=== PATIENT | male | born 1960 | race Caucasian/White ===

== ENCOUNTER → 2016-07-31 | Outpatient (CLI) | payer BC ==
--- NOTE | 2016-07-31 11:40 | CT ---
EXAMINATION TYPE: CT chest w con DATE OF EXAM: 07/31/2016 10:27 AM COMPARISON: NONE HISTORY: Left lower chest pain CT DLP: 462.6 mGycm, Automated exposure control for dose reduction was used. CONTRAST: Performed injected with 100 mL of Omnipaque 300. TECHNIQUE: Axial images were obtained at 5 mm thick sections. Reconstructed images are reviewed on Sgn[employer] computer in the coronal plane. FINDINGS: Portion of the thyroid visualized is normal. No suspicious lung nodules or focal infiltrates are present. No enlarged mediastinal or hilar adenopathy is evident. The ascending aorta diameter at the level o f the main pulmonary artery is 3.6 cm. The main pulmonary artery diameter at the bifurcation is 2.0 cm. Some coronary artery calcification is noted. Limited CT sections are obtained through the upper abdomen. Abdomen is essentially unremarkable. Ther e is a moderate size hiatal hernia present. IMPRESSIONS: 1. No acute pulmonary process. 2. Hiatal hernia
== END | disposition home or self-care (01) ==
LOC: RADCTMAIN 09:38
PROVIDERS: ATTEND Physician Assistant
DX: R09.89 Other specified symptoms and signs involving the circulatory and respiratory systems (principal)
CPT/HCPCS: 71260; Q9967

== ENCOUNTER 2017-01-05 01:07 | Emergency (ER) | payer BC ==
[2017-01-05] MEDS ORDERED: ACETAMINOPHEN TAB 500 MG TAB PO STA (01:58)
[2017-01-05] MEDS ORDERED: SODIUM CHLORIDE 0.9% 1,000 ML IV ONE (01:58)
--- NOTE | 2017-01-05 02:17 | ED ---
Skin/Abscess/FB HPI - General Chief complaint: Skin/Abscess/Foreign Body Stated complaint: bug bite,fever Time Seen by Provider: 01/05/17 01:20 Source: patient, RN notes reviewed Mode of arrival: ambulatory Limitations: no limitations - History of Present Illness Initial comments: patient is a 56-year-old male presents emergency room for evaluation of left proximal forearm swelling and pain. Patient states he noticed a bug bite like lesion over his left forearm yesterday. Patient states it has increasingly gotten more swollen throughout the night. Patient states that he woke up about an hour ago with chills. Patient states he thought his arm should be evaluated. Patient denies nausea and vomiting. Patient denies headache or dizziness. Patient denies chest pain or shortness of breath. Patient states he still has full flexion and extension of his elbow. Patient denies any specific injury to his arm. Patient states he is not sure if he was bitten by an insect or spider. - Related Data Home Medications Medication Instructions Recorded Confirmed Enalapril (Unknown Dose) 1 tab PO BID 02/21/15 02/21/15 Tenex (Unknown Dose) 1 tab PO DAILY 02/21/15 02/21/15 Previous Rx's Medication Instructions Recorded HYDROcodone/APAP 5-325MG [[place] 1 each PO Q6HR PRN #20 tab 02/21/15 5-325] Ibuprofen [Motrin] 800 mg PO Q8HR PRN #30 tab 02/21/15 Ibuprofen [Motrin] 600 mg PO Q6HR PRN #20 tab 01/05/17 Sulfamethox-Tmp 800-160Mg [Bactrim 2 each PO Q12HR #56 tab 01/05/17 Ds] Allergies Allergy/AdvReac Type Severity Reaction Status Date / Time Tetracyclines Allergy Nausea & Verified 01/05/17 01:17 Vomiting Review of Systems ROS Statement: Those systems with pertinent positive or pertinent negative responses have been documented in the HPI. ROS Other: All systems not noted in ROS Statement are negative. Past Medical History Past Medical History: Hypertension History of Any Multi-Drug Resistant Organisms: None Reported Past Surgical History: Orthopedic Surgery Additional Past Surgical History / Comment(s): Right achilles tendon repair Past Psychological History: No Psychological Hx Reported Smoking Status: Never smoker Past Alcohol Use History: Occasional Past Drug Use History: None Reported General Exam - General Exam Comments Initial Comments: sitting in exam room, no acute distress. Limitations: no limitations General appearance: alert, in no apparent distress Head exam: Present: atraumatic, normocephalic, normal inspection Eye exam: Present: normal appearance ENT exam: Present: normal exam Neck exam: Present: normal inspection Respiratory exam: Present: normal lung sounds bilaterally. Absent: respiratory distress Cardiovascular Exam: Present: regular rate, normal rhythm, normal heart sounds Left Upper Arm exam: Present: normal inspection, full ROM. Absent: tenderness Elbow exam: Present: normal inspection, full ROM. Absent: tenderness Forearm Wrist exam: Present: tenderness, swelling (Tenderness and edema over the proximal forearm. No erythema or surrounding erythema. No streaking noted. No fluctuance.) Neuro motor exam: Present: wrist extension intact, thumb opposition intact, thumb IP flexion intact, thumb adduction intact, fingers 2-5 abduction intact Vascular: Present: normal capillary refill (capillary refill less than 2 seconds ), radial pulse (2+), ulnar pulse (2+) Back exam: Present: normal inspection Neurological exam: Present: alert, oriented X3, CN II-XII intact, normal gait Psychiatric exam: Present: normal affect, normal mood Skin exam: Present: warm, dry, intact, normal color. Absent: rash Course Vital Signs 01/05/17 01/05/17 01/05/17 01:14 01:48 02:53 Temperature 99.4 F 101.2 F H 99.8 F H Pulse Rate 90 60 Respiratory 20 18 Rate Blood Pressure 146/81 119/69 O2 Sat by Pulse 98 98 Oximetry 01/05/17 03:23 Temperature 99.8 F H Pulse Rate 60 Respiratory 18 Rate Blood Pressure 119/69 O2 Sat by Pulse 98 Oximetry Medical Decision Making - Medical Decision Making patient is a 56-year-old male presents to the emergency room for evaluation of swelling over her left forearm. There is no swelling or tenderness over the elbow joint. Labs within normal limits. The area does not appear to need to be drained at this time. Advised patient to apply warm compresses. Patient will be placed on antibiotics. Advised patient to return for any increased swelling, increased redness, streaking or decrease in range of motion of elbow. Patient states he understands everything that was discussed with him. Case discussed Dr. Pelletier. - Lab Data Result diagrams: 01/05/17 02:14 01/05/17 02:14 Lab Results 01/05/17 01/05/17 01/05/17 Range/Units 02:14 02:14 02:14 WBC 9.0 (3.8-10.6) k/uL RBC 4.97 (4.30-5.90) m/uL Hgb 15.2 (13.0-17.5) gm/dL Hct 43.9 (39.0-53.0) % MCV 88.2 (80.0-100.0) fL MCH 30.6 (25.0-35.0) pg MCHC 34.7 (31.0-37.0) g/dL RDW 12.7 (11.5-15.5) % Plt Count 171 (150-450) k/uL Neutrophils % 78 % Lymphocytes % 13 % Monocytes % 6 % Eosinophils % 3 % Basophils % 0 % Neutrophils # 7.0 (1.3-7.7) k/uL Lymphocytes # 1.1 (1.0-4.8) k/uL Monocytes # 0.5 (0-1.0) k/uL Eosinophils # 0.2 (0-0.7) k/uL Basophils # 0.0 (0-0.2) k/uL Sodium 138 (137-145) mmol/L Potassium 3.9 (3.5-5.1) mmol/L Chloride 104 (98-107) mmol/L Carbon Dioxide 23 (22-30) mmol/L Anion Gap 11 mmol/L BUN 31 H (9-20) mg/dL Creatinine 1.00 (0.66-1.25) mg/dL Est GFR (MDRD) Af Amer >60 (>60 ml/min/1.73 sqM) Est GFR (MDRD) Non-Af >60 (>60 ml/min/1.73 sqM) Glucose 110 H (74-99) mg/dL Plasma Lactic Acid Malik 1.1 (0.7-2.0) mmol/L Calcium 9.2 (8.4-10.2) mg/dL Total Bilirubin 1.2 (0.2-1.3) mg/dL AST 32 (17-59) U/L ALT 52 (21-72) U/L Alkaline Phosphatase 62 (38-126) U/L Total Protein 6.7 (6.3-8.2) g/dL Albumin 4.3 (3.5-5.0) g/dL - Radiology Data Radiology results: report reviewed, image reviewed Disposition Clinical Impression: Left arm cellulitis Disposition: HOME SELF-CARE Condition: Good Instructions: Cellulitis (ED) Additional Instructions: Apply warm compresses. Take antibiotics as directed. Tylenol or Motrin as needed for discomfort. Please follow-up with primary care provider in 24-48 hours for reevaluation. If any new symptom arises or symptoms worsen, return to ER as soon as possible. Prescriptions: Ibuprofen [Motrin] 600 mg PO Q6HR PRN #20 tab PRN Reason: Pain Sulfamethox-Tmp 800-160Mg [Bactrim Ds] 2 each PO Q12HR #56 tab Referrals: Sanya Chamberlain DO [Primary Care Provider] - 1-2 days Time of Disposition: 03:07
[2017-01-05 02:21] LABS: Basophils % (A) 0 %; CH 31.6; Eosinophils # (A) 0.2 k/uL (0-0.7); Eosinophils % (A) 3 %; HCT 43.9 % (39.0-53.0); HDW 2.62; HGB 15.2 gm/dL (13.0-17.5); Luc # (Auto) 0.12; Luc % (Auto) 1; Lymphocytes # (A) 1.1 k/uL (1.0-4.8); Lymphocytes % (A) 13 %; MCH 30.6 pg (25.0-35.0); MCHC 34.7 g/dL (31.0-37.0); MCV 88.2 fL (80.0-100.0); Mean Platelet Volume 8.9; Monocytes # (A) 0.5 k/uL (0-1.0); Monocytes % (A) 6 %; Neutrophils % (A) 78 %; RBC 4.97 m/uL (4.30-5.90); RDW 12.7 % (11.5-15.5); WBC (Perox) 9.26
[2017-01-05 02:34] LABS: ALT 52 U/L (21-72); AST 32 U/L (17-59); Alkaline Phosphatase 62 U/L (38-126); Anion Gap 11 mmol/L; Blood Urea Nitrogen 31 mg/dL (9-20); Calcium 9.2 mg/dL (8.4-10.2); Carbon Dioxide 23 mmol/L (22-30); Chloride 104 mmol/L (98-107); Glucose 110 mg/dL (74-99); Non-African American GFR(MDRD) >60 (>60 ml/min/1.73 sqM); Potassium 3.9 mmol/L (3.5-5.1); Sodium 138 mmol/L (137-145); Total Bilirubin 1.2 mg/dL (0.2-1.3); Total Protein 6.7 g/dL (6.3-8.2)
--- NOTE | 2017-01-05 02:49 | XR ---
LEFT ELBOW 2 views INDICATION: Left elbow pain COMPARISON: None FINDINGS: AP and lateral views of the left elbow are obtained. No elbow joint effusion. No malalignment or dislocation. No evidence of acute fracture. Mild osteoarthritic changes of the ulnohumeral articulation. Enthesopathy along the lateral humeral epicondyle and lateral radial head. Soft tissues are unremarkable. IMPRESSION: No acute fracture or subluxation identified.
[2017-01-05 02:54] VITALS: BP 119/69; PULSE 60; RESP 18; TEMP 99.8
[2017-01-05] MEDS ORDERED: SULFAMETHOX-TMP 800-160MG 1 EACH TAB PO STA (03:06)
== END 2017-01-05 03:23 | disposition home or self-care (01) ==
LOC: EC 01:07
DX: L03.114 Cellulitis of left upper limb (principal); I10 Essential (primary) hypertension; Z79.899 Other long term (current) drug therapy; Z88.1 Allergy status to other antibiotic agents
CPT/HCPCS: 36415; 80053; 83605; 85025; 96360; 99283

== ENCOUNTER 2017-10-02 16:03 | Observation (INO) | payer BC ==
--- NOTE | 2017-10-02 16:28 | ED ---
General Adult HPI - General Chief complaint: Syncope Stated complaint: near syncope Time Seen by Provider: 10/02/17 16:06 Source: patient, RN notes reviewed Mode of arrival: EMS Limitations: no limitations - History of Present Illness Initial comments: 57 yo male presenting for evaluation of right-sided chest pain. 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 Pain was so severe patient did become pale diaphoretic and nearly passed out. At the time of my evaluation pain is resolved. He has only minimal tenderness with palpation in the right upper chest. No dyspnea. No nausea vomiting. He did have nausea associated with his pain. Patient has past medical history of hypertension. Patient did eat a normal breakfast, he has had no lunch which is not abnormal for him. - Related Data Home Medications Medication Instructions Recorded Confirmed LORazepam [Ativan] 0.5 mg PO HS 10/02/17 10/02/17 Valsartan/Hydrochlorothiazide 1 tab PO HS 10/02/17 10/02/17 [Valsartan-Hctz 320-25 mg Tab] guanFACINE HCL [Tenex] 2 mg PO BID 10/02/17 10/02/17 Allergies Allergy/AdvReac Type Severity Reaction Status Date / Time sulfamethoxazole Allergy Nausea & Verified 10/02/17 17:11 [From Bactrim] Vomiting Tetracyclines Allergy Nausea & Verified 10/02/17 17:11 Vomiting trimethoprim [From Bactrim] Allergy Nausea & Verified 10/02/17 17:11 Vomiting Review of Systems ROS Statement: Those systems with pertinent positive or pertinent negative responses have been documented in the HPI. ROS Other: All systems not noted in ROS Statement are negative. Past Medical History Past Medical History: Hypertension Additional Past Medical History / Comment(s): hypoglycemia History of Any Multi-Drug Resistant Organisms: None Reported Past Surgical History: Orthopedic Surgery Additional Past Surgical History / Comment(s): Right achilles tendon repair Past Psychological History: No Psychological Hx Reported Smoking Status: Never smoker Past Alcohol Use History: Occasional Past Drug Use History: None Reported General Exam Limitations: no limitations General appearance: alert, in no apparent distress Head exam: Present: atraumatic, normocephalic Eye exam: Present: normal appearance, PERRL ENT exam: Present: normal exam Neck exam: Present: normal inspection. Absent: tenderness, meningismus Respiratory exam: Present: normal lung sounds bilaterally. Absent: respiratory distress, wheezes, rales Cardiovascular Exam: Present: regular rate, normal rhythm GI/Abdominal exam: Present: soft. Absent: distended, tenderness Extremities exam: Present: normal inspection, normal capillary refill, other ( Bilateral radial pulses 2+). Absent: pedal edema Neurological exam: Present: alert, oriented X3, CN II-XII intact. Absent: motor sensory deficit Psychiatric exam: Present: normal affect, normal mood Skin exam: Present: warm, dry, intact. Absent: cyanosis, diaphoretic Course Vital Signs 10/02/17 10/02/17 10/02/17 16:10 16:47 17:45 Temperature 98.9 F Pulse Rate 73 71 Pulse Rate [ 73 Sitting] Pulse Rate [ 77 Standing] Pulse Rate [ 70 Supine] Respiratory 20 16 20 Rate Blood Pressure 135/80 141/65 Blood Pressure 159/77 [Sitting] Blood Pressure 145/92 [Standing] Blood Pressure 138/74 [Supine] O2 Sat by Pulse 98 98 Oximetry - Reevaluation(s) Reevaluation #1: 10/02/17 18:40 Patient remains chest pain-free on reevaluation. He's had no chest pain since arrival. Further history was obtained at the patient's son did pass away at age 28 of an aortic dissection. This history was obtained after CT of the thorax was obtained. CT of the thorax for pulmonary embolism was negative for dissection, normal thoracic aortic caliber. However this was not timed as an aorta study and radiology cannot fully comment on the aorta from this CAT scan. Patient's pulses are normal, blood pressure is stable. However given this history CT angiography of the aorta will be obtained in the morning. This is discussed with [facility] who will accept admission and follow-up on the CT. EKG Findings - EKG Comments: EKG Findings:: EKG, normal sinus rhythm ventricular rate of 71, DC interval 158 , QRS duration 84, QTC 452 no definitive signs of ischemia. Medical Decision Making - Medical Decision Making 57 yo male presenting with right-sided chest pain which is resolved. Patient also had near syncopal episode with patellar and diaphoresis by history. Patient is well-appearing on arrival, normal vital signs. Pain resolved. EKG shows no definitive signs of ischemia. CBC CMP within normal limits. Troponin is negative. CT angiography was obtained which is negative for PE, there is hiatal hernia. This study was performed prior to learning that the patient's son of a thoracic aortic aneurysm approximately 2 years ago. This was secondary to a congenital defect according to the patient's . Although patient's pain is atypical for cardiac chest pain, serial cardiac enzymes will be obtained and cardiology will be placed on consult. CT of the aorta will be obtained in the morning after IV hydration. Diagnosis: Chest pain, near syncope - Lab Data Result diagrams: 10/02/17 16:40 10/02/17 16:40 Lab Results 10/02/17 10/02/17 10/02/17 Range/Units 16:40 16:40 16:40 WBC 7.3 (3.8-10.6) k/uL RBC 4.96 (4.30-5.90) m/uL Hgb 15.1 (13.0-17.5) gm/dL Hct 42.2 (39.0-53.0) % MCV 84.9 (80.0-100.0) fL MCH 30.5 (25.0-35.0) pg MCHC 35.9 (31.0-37.0) g/dL RDW 12.8 (11.5-15.5) % Plt Count 187 (150-450) k/uL Neutrophils % 74 % Lymphocytes % 18 % Monocytes % 5 % Eosinophils % 1 % Basophils % 0 % Neutrophils # 5.4 (1.3-7.7) k/uL Lymphocytes # 1.3 (1.0-4.8) k/uL Monocytes # 0.4 (0-1.0) k/uL Eosinophils # 0.1 (0-0.7) k/uL Basophils # 0.0 (0-0.2) k/uL PT (9.0-12.0) sec INR (<1.2) APTT (22.0-30.0) sec D-Dimer (<0.60) mg/L FEU Sodium 142 (137-145) mmol/L Potassium 4.0 (3.5-5.1) mmol/L Chloride 104 (98-107) mmol/L Carbon Dioxide 22 (22-30) mmol/L Anion Gap 16 mmol/L BUN 25 H (9-20) mg/dL Creatinine 1.00 (0.66-1.25) mg/dL Est GFR (CKD-EPI)AfAm >90 (>60 ml/min/1.73 sqM) Est GFR (CKD-EPI)NonAf 84 (>60 ml/min/1.73 sqM) Glucose 99 (74-99) mg/dL Calcium 9.3 (8.4-10.2) mg/dL Magnesium 2.0 (1.6-2.3) mg/dL Total Bilirubin 0.5 (0.2-1.3) mg/dL AST 35 (17-59) U/L ALT 56 (21-72) U/L Alkaline Phosphatase 74 (38-126) U/L Total Creatine Kinase 255 H (55-170) U/L CK-MB (CK-2) 3.0 H* (0.0-2.4) ng/mL CK-MB (CK-2) Rel Index 1.2 Troponin I <0.012 (0.000-0.034) ng/mL NT-Pro-B Natriuret Pep pg/mL Total Protein 7.0 (6.3-8.2) g/dL Albumin 4.5 (3.5-5.0) g/dL Amylase 64 (30-110) U/L Lipase 84 (23-300) U/L 10/02/17 10/02/17 Range/Units 16:40 16:40 WBC (3.8-10.6) k/uL RBC (4.30-5.90) m/uL Hgb (13.0-17.5) gm/dL Hct (39.0-53.0) % MCV (80.0-100.0) fL MCH (25.0-35.0) pg MCHC (31.0-37.0) g/dL RDW (11.5-15.5) % Plt Count (150-450) k/uL Neutrophils % % Lymphocytes % % Monocytes % % Eosinophils % % Basophils % % Neutrophils # (1.3-7.7) k/uL Lymphocytes # (1.0-4.8) k/uL Monocytes # (0-1.0) k/uL Eosinophils # (0-0.7) k/uL Basophils # (0-0.2) k/uL PT 10.4 (9.0-12.0) sec INR 1.1 (<1.2) APTT 18.6 L (22.0-30.0) sec D-Dimer <0.17 (<0.60) mg/L FEU Sodium (137-145) mmol/L Potassium (3.5-5.1) mmol/L Chloride (98-107) mmol/L Carbon Dioxide (22-30) mmol/L Anion Gap mmol/L BUN (9-20) mg/dL Creatinine (0.66-1.25) mg/dL Est GFR (CKD-EPI)AfAm (>60 ml/min/1.73 sqM) Est GFR (CKD-EPI)NonAf (>60 ml/min/1.73 sqM) Glucose (74-99) mg/dL Calcium (8.4-10.2) mg/dL Magnesium (1.6-2.3) mg/dL Total Bilirubin (0.2-1.3) mg/dL AST (17-59) U/L ALT (21-72) U/L Alkaline Phosphatase (38-126) U/L Total Creatine Kinase (55-170) U/L CK-MB (CK-2) (0.0-2.4) ng/mL CK-MB (CK-2) Rel Index Troponin I (0.000-0.034) ng/mL NT-Pro-B Natriuret Pep 40 pg/mL Total Protein (6.3-8.2) g/dL Albumin (3.5-5.0) g/dL Amylase (30-110) U/L Lipase (23-300) U/L Disposition Clinical Impression: Syncope, Chest pain Disposition: ADMITTED IP TO THIS [facility] Condition: Stable Is patient prescribed a controlled substance at d/c from ED?: No Referrals: Sanya Chamberlain DO [Primary Care Provider] - 1-2 days Decision to Admit Reason: Admit from EC Decision Date: 10/02/17 Decision Time: 18:45
[2017-10-02 16:56] LABS: Basophils % (A) 0 %; Eosinophils # (A) 0.1 k/uL (0-0.7); Eosinophils % (A) 1 %; HCT 42.2 % (39.0-53.0); HGB 15.1 gm/dL (13.0-17.5); Lymphocytes # (A) 1.3 k/uL (1.0-4.8); Lymphocytes % (A) 18 %; MCH 30.5 pg (25.0-35.0); MCHC 35.9 g/dL (31.0-37.0); MCV 84.9 fL (80.0-100.0); Mean Platelet Volume 9.1; Monocytes # (A) 0.4 k/uL (0-1.0); Monocytes % (A) 5 %; Neutrophils # (A) 5.4 k/uL (1.3-7.7); Neutrophils % (A) 74 %; Platelet Count 187 k/uL (150-450); RBC 4.96 m/uL (4.30-5.90); RDW 12.8 % (11.5-15.5); WBC 7.3 k/uL (3.8-10.6)
[2017-10-02 17:11] LABS: Creatine Kinase 255 U/L (55-170)
--- NOTE | 2017-10-02 17:11 | XR ---
EXAMINATION TYPE: XR chest 2V DATE OF EXAM: 10/02/2017 COMPARISON: NONE HISTORY: Shortness of breath TECHNIQUE: Frontal and lateral views of the chest are obtained. FINDINGS: Scattered senescent parenchymal changes noted. Hyperinflation compatible with COPD. No evidence for infiltrate. No evidence for atelectasis. Heart size is stable. Mediastinal structures are stable and grossly unremarkable. Fixed hiatal hernia noted. No evidence for hilar prominence. Degenerative changes dorsal spine. IMPRESSION: 1. No evidence for acute pulmonary disease.
[2017-10-02 17:14] LABS: ALT 56 U/L (21-72); AST 35 U/L (17-59); Albumin 4.5 g/dL (3.5-5.0); Alkaline Phosphatase 74 U/L (38-126); Amylase 64 U/L (30-110); Anion Gap 16 mmol/L; Blood Urea Nitrogen 25 mg/dL (9-20); Calcium 9.3 mg/dL (8.4-10.2); Carbon Dioxide 22 mmol/L (22-30); Chloride 104 mmol/L (98-107); Glucose 99 mg/dL (74-99); Lipase 84 U/L (23-300); Sodium 142 mmol/L (137-145); Total Bilirubin 0.5 mg/dL (0.2-1.3)
[2017-10-02 17:19] LABS: D-Dimer <0.17 mg/L FEU (<0.60); INR 1.1 (<1.2); Prothrombin Time 10.4 sec (9.0-12.0)
[2017-10-02 17:21] LABS: Partial Thromboplastin Time 18.6 sec (22.0-30.0)
[2017-10-02 17:24] LABS: Troponin I <0.012 ng/mL (0.000-0.034)
[2017-10-02] MEDS ORDERED: RX INFO: IV CONTRAST WAS GIVEN 1 EACH MISC MISCELLANE PRN ×2 (17:36→18:45)
--- NOTE | 2017-10-02 18:21 | CT ---
EXAMINATION TYPE: CT angio chest DATE OF EXAM: 10/02/2017 COMPARISON: 07/31/2016 HISTORY: Patient complains of right side chest pain and near syncope. CT DLP: 493 mGycm CONTRAST: CT chest with contrast and 3D reconstruction with MIP imaging is performed with IV Contrast, patient injected with 100 mL of Isovue 370. Contrast-enhanced CT of the chest was performed through the course of the pulmonary arteries with emil g and mediastinal window settings submitted. 3D reconstruction with MIP imaging was also performed. PULMONARY ARTERIES: The pulmonary arteries and their major tributaries are patent. I do not see enmanuel dence for sizable filling defect to suggest pulmonary embolic process. LUNGS: The lungs are clear and free of infiltrate. No evidence for atelectasis. No pulmonary nodule or mass is detected. No pleural effusion. MEDIASTINUM: Thoracic aorta is of normal caliber,however, evaluation is limited given timing of the contrast bolus. If there is concern for thoracic aortic pathology consider GABRIELLA. Correlate clinicall y . The heart is not enlarged. No evidence for mediastinal mass. No mediastinal lymph nodes greater than 1cm. Moderate fixed hiatal hernia. HILAR STRUCTURES: No evidence for mass. No hilar lymph nodes greater than 1 cm. UPPER ABDOMEN: No significant abnormality is seen. IMPRESSION: 1. No evidence for Pulmonary embolism at this time. 2. Moderate fixed hiatal hernia.
[2017-10-02] MEDS ORDERED: NALOXONE 0.4 MG/ML 1 ML VIAL IV PRN (18:46)
[2017-10-02] MEDS ORDERED: ACETAMINOPHEN TAB 325 MG TAB PO PRN (18:46)
[2017-10-02] MEDS ORDERED: HYDROcodone/APAP 5-325MG 1 EACH TAB PO PRN (22:29)
[2017-10-02] MEDS: LORazepam 0.5 MG TAB PO SCH (22:35)
[2017-10-02] MEDS: HYDROCHLOROTHIAZIDE 25 MG TAB PO SCH (23:01)
[2017-10-02] MEDS: VALSARTAN 160 MG TAB PO SCH (23:01)
[2017-10-02 23:22] LABS: Creatine Kinase 242 U/L (55-170)
[2017-10-02 23:36] LABS: Creatine Kinase MB 2.1 ng/mL (0.0-2.4); Troponin I <0.012 ng/mL (0.000-0.034)
[2017-10-03 05:24] LABS: Creatine Kinase 209 U/L (55-170)
[2017-10-03 05:37] LABS: Creatine Kinase MB 1.8 ng/mL (0.0-2.4); Troponin I <0.012 ng/mL (0.000-0.034)
[2017-10-03 10:29] LABS: Anion Gap 13 mmol/L; Blood Urea Nitrogen 21 mg/dL (9-20); Calcium 9.1 mg/dL (8.4-10.2); Carbon Dioxide 25 mmol/L (22-30); Chloride 101 mmol/L (98-107); Glucose 104 mg/dL (74-99); Sodium 139 mmol/L (137-145)
[2017-10-03] MEDS: guanFACINE 1 MG TAB PO SCH ×2 (10:43→21:56)
--- NOTE | 2017-10-03 11:39 | ECHOF ---
Referral Reason:cp MEASUREMENTS -------- HEIGHT: 167.6 cm WEIGHT: 97.1 kg BP: 137/79 RVIDd: 2.7 cm (< 3.3) IVSd: 1.2 cm (0.6 - 1.1) LVIDd: 4.5 cm (3.9 - 5.3) LVPWd: 1.2 cm (0.6 - 1.1) IVSs: 1.6 cm LVIDs: 3.1 cm LVPWs: 1.5 cm LA Diam: 2.7 cm (2.7 - 3.8) LAESV Index (A-L): 31.82 ml/m Ao Diam: 2.9 cm (2.0 - 3.7) AV Cusp: 2.0 cm (1.5 - 2.6) MV EXCURSION: 12.148 mm (> 18.000) MV EF SLOPE: 57 mm/s (70 - 150) EPSS: 0.2 cm MV E Tigre: 0.70 m/s MV DecT: 266 ms MV A Tigre: 0.88 m/s MV E/A Ratio: 0.79 AR PHT: 843 ms RAP: 5.00 mmHg RVSP: 26.09 mmHg FINDINGS -------- Sinus rhythm. This was a technically adequate study. The left ventricular size is normal. There is borderline concentric left ventricular hypertrophy. Overall left ventricular systolic function is normal with, an EF between 60 - 65 %. The right ventricle is normal in size. LA is midly dilated 29-33ml/m2. The right atrium is normal in size. There is mild aortic valve sclerosis. There is mild aortic regurgitation. Mild mitral annular calcification present. Mild tricuspid regurgitation present. Right ventricular systolic pressure is normal at < 35 mmHg. There is no pulmonic regurgitation present. The aortic root size is normal. Normal inferior vena cava with normal inspiratory collapse consistent with estimated right atrial pre ssure of 5 mmHg. There is no pericardial effusion. CONCLUSIONS -------- 1. Sinus rhythm. 2. This was a technically adequate study. 3. The left ventricular size is normal. 4. There is borderline concentric left ventricular hypertrophy. 5. Overall left ventricular systolic function is normal with, an EF between 60 - 65 %. 6. The right ventricle is normal in size. 7. LA is midly dilated 29-33ml/m2. 8. The right atrium is normal in size. 9. There is mild aortic valve sclerosis. 10. There is mild aortic regurgitation. 11. Mild mitral annular calcification present. 12. Mild tricuspid regurgitation present. 13. Right ventricular systolic pressure is normal at < 35 mmHg. 14. There is no pulmonic regurgitation present. 15. The aortic root size is normal. 16. Normal inferior vena cava with normal inspiratory collapse consistent with estimated right atrial pressure of 5 mmHg. 17. There is no pericardial effusion. COMPTOMETER OPERATOR: Asia Ramirez RDCS
--- NOTE | 2017-10-03 11:50 | P.CRDCN ---
History of Present Illness Consult date: 10/03/17 History of present illness: Mr. Chaves is a pleasant 57-year-old male past medical history significant for hypertension and depression. He denies history of coronary artery disease, diabetes mellitus or dyslipidemia. He does not see a replanting machine operator for any reason. We have been asked to see him in consultation for chest pain. He states he was at work yesterday when he became acutely dizzy. 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 Once he sat down he got an intensely sharp pain in the right anterior chest wall that radiated down the right arm and through to his back. Per his co-workers he was ashen in color and extremely disoriented and diaphoretic. The symptoms lasted for approximately 20 minutes and subsided on its own. He denies associated shortness of breath, palpitations, nausea or vomiting. He states he lost his son last year secondary to a thoracic aortic aneurysm. Initial CTA chest revealed no evidence of PE however thoracic aorta was not clearly visualized. Repeat CT is ordered for this evening at 1800. He's had no further symptoms of chest discomfort or dizziness since admission. EKG revels sinus mechanism with no acute ST or T-wave abnormalities. Telemetry tracings have been unremarkable. Chest xray is negative for an acute cardiopulmonary process. Laboratory data reviewed, hemoglobin 15.1, platelets 187, d-dimer less than 0.17 , sodium 139, potassium 4.0, magnesium 2.0, creatinine 0.2, cardiac enzymes negative 3. Current cardiac medications include valsartan/HCTZ 320/25 mg daily. He also takes Ativan and Tenex. Review of Systems At the time of my exam: CONSTITUTIONAL: Denies fever. Denies chills. EYES: Denies blurred vision. Denies vision changes. Denies eye pain. EARS, NOSE, MOUTH & THROAT: Denies headache. Denies sore throat. Denies ear pain. CARDIOVASCULAR: Denies chest pain. Denies shortness of breath. Denies orthopnea. Denies PND. Denies palpitations. RESPIRATORY: Denies cough. GASTROINTESTINAL: Denies abdominal pain. Denies diarrhea. Denies constipation. Denies nausea. Denies vomiting. MUSCULOSKELETAL: Denies myalgias. INTEGUMENTARY: Denies pruitis. Denies rash. NEUROLOGIC: Denies numbness. Denies tingling. Denies weakness. PSYCHIATRIC: Denies anxiety. Denies depression. ENDOCRINE: Denies fatigue. Denies weight change. Denies polydipsia. Denies polyurina. GENITOURINARY: Denies burning, hematuria or urgency with micturation. HEMATOLOGIC: Denies history of anemia. Denies bleeding. Past Medical History Past Medical History: Hypertension, Pneumonia Additional Past Medical History / Comment(s): hypoglycemia History of Any Multi-Drug Resistant Organisms: None Reported Past Surgical History: Orthopedic Surgery Additional Past Surgical History / Comment(s): Right achilles tendon repair Past Anesthesia/Blood Transfusion Reactions: No Reported Reaction Smoking Status: Never smoker - Past Family History Mother Additional Family Medical History / Comment(s): passed at 26 in MVA Father Additional Family Medical History / Comment(s): passed at 28 of MVA Sister(s) Family Medical History: No Reported History Brother(s) Family Medical History: No Reported History Son(s) Additional Family Medical History / Comment(s): at 28 from AAA rupture Daughter(s) Family Medical History: No Reported History Medications and Allergies Home Medications Medication Instructions Recorded Confirmed Type LORazepam [Ativan] 0.5 mg PO HS 10/02/17 10/02/17 History Valsartan/Hydrochlorothiazide 1 tab PO 10/02/17 10/02/17 History [Valsartan-Hctz 320-25 mg Tab] guanFACINE HCL [Tenex] 2 mg PO BID 10/02/17 10/02/17 History Allergies Allergy/AdvReac Type Severity Reaction Status Date / Time sulfamethoxazole Allergy Nausea & Verified 10/02/17 22:04 [From Bactrim] Vomiting Tetracyclines Allergy Nausea & Verified 10/02/17 22:04 Vomiting trimethoprim [From Bactrim] Allergy Nausea & Verified 10/02/17 22:04 Vomiting Physical Exam Vitals: Vital Signs Temp Pulse Pulse Pulse Pulse Pulse Resp 10/03/17 07:58 98.1 F 62 10/03/17 04:00 97.8 F 63 16 10/03/17 03:23 16 10/02/17 22:21 98.4 F 65 10/02/17 22:17 18 10/02/17 21:42 99.9 F H 73 10/02/17 17:45 71 20 10/02/17 16:47 73 77 70 16 10/02/17 16:10 98.9 F 73 20 BP BP BP BP BP Pulse Ox 10/03/17 07:58 137/79 99 10/03/17 04:00 119/69 95 10/03/17 03:23 10/02/17 22:21 143/72 96 10/02/17 22:17 10/02/17 21:42 107/66 96 10/02/17 17:45 141/65 98 10/02/17 16:47 159/77 145/92 138/74 10/02/17 16:10 135/80 98 Intake and Output 10/02/17 10/03/17 10/03/17 22:59 06:59 14:59 Other: Voiding Method Toilet Toilet Weight 97.069 kg Blood pressure 137/79 heart rate 62 afebrile maintaining oxygen saturation on room air. GENERAL: This is a 57-year-old male in no apparent distress at the time of my examination. HEENT: Head is atraumatic, normocephalic. Pupils are equal, round. Sclerae anicteric. Conjunctivae are clear. Mucous membranes of the mouth are moist. Neck is supple. There is no jugular venous distention. No carotid bruit is heard. LUNGS: Clear to auscultation no wheezes, rales or rhonchi. No chest wall tenderness is noted on palpation or with deep breathing. HEART: Regular rate and rhythm without murmurs, rubs or gallops. S1 and S2 heard. ABDOMEN: Soft, nontender. Bowel sounds are heard. No organomegaly noted. EXTREMITIES: No evidence of peripheral edema and no calf tenderness noted. VASCULAR: Radial and dorsalis pedis pulses palpated, no evidence of clubbing. NEUROLOGIC: Patient is awake, alert and oriented x3. Results 10/02/17 16:40 10/03/17 04:37 Cardiac Enzymes 10/02/17 10/02/17 10/02/17 Range/Units 16:40 16:40 22:51 AST 35 (17-59) U/L CK-MB (CK-2) 3.0 H* 2.1 (0.0-2.4) ng/mL Troponin I <0.012 <0.012 (0.000-0.034) ng/mL 10/03/17 Range/Units 04:37 AST (17-59) U/L CK-MB (CK-2) 1.8 (0.0-2.4) ng/mL Troponin I <0.012 (0.000-0.034) ng/mL Coagulation 10/02/17 Range/Units 16:40 PT 10.4 (9.0-12.0) sec APTT 18.6 L (22.0-30.0) sec CBC 10/02/17 Range/Units 16:40 WBC 7.3 (3.8-10.6) k/uL RBC 4.96 (4.30-5.90) m/uL Hgb 15.1 (13.0-17.5) gm/dL Hct 42.2 (39.0-53.0) % Plt Count 187 (150-450) k/uL Comprehensive Metabolic Panel 10/02/17 Range/Units 16:40 Sodium 142 (137-145) mmol/L Potassium 4.0 (3.5-5.1) mmol/L Chloride 104 (98-107) mmol/L Carbon Dioxide 22 (22-30) mmol/L BUN 25 H (9-20) mg/dL Creatinine 1.00 (0.66-1.25) mg/dL Glucose 99 (74-99) mg/dL Calcium 9.3 (8.4-10.2) mg/dL AST 35 (17-59) U/L ALT 56 (21-72) U/L Alkaline Phosphatase 74 (38-126) U/L Total Protein 7.0 (6.3-8.2) g/dL Albumin 4.5 (3.5-5.0) g/dL Current Medications Generic Name Dose Route Start Last Admin Trade Name Freq PRN Reason Stop Dose Admin Acetaminophen 650 mg 10/02/17 18:46 Tylenol Tab PO Q6HR PRN Mild Pain or Fever > 100.5 Hydrocodone Bitart/Acetaminophen 1 each 10/02/17 22:29 [place] 5-325 PO Q4HR PRN for moderate pain Hydrochlorothiazide 25 mg 10/02/17 21:00 10/02/17 23:01 Hydrodiuril PO 25 mg HS OCTAVIANO Administration Lorazepam 0.5 mg 10/02/17 21:00 10/02/17 22:35 Ativan PO 0.5 mg HS OCTAVIANO Administration Miscellaneous Information 1 each 10/02/17 17:36 Rx Info: Iv Contrast Was Given MISCELLANE 10/04/17 17:36 DAILY PRN Per Protocol Miscellaneous Information 1 each 10/02/17 18:45 Rx Info: Iv Contrast Was Given MISCELLANE 10/04/17 18:45 DAILY PRN Per Protocol Naloxone HCl 0.2 mg 10/02/17 18:46 Narcan IV Q2M PRN Opioid Reversal Valsartan 320 mg 10/02/17 21:00 10/02/17 23:01 Diovan PO 320 mg HS OCTAVIANO Administration Intake and Output 10/02/17 10/03/17 10/03/17 22:59 06:59 14:59 Other: Voiding Method Toilet Toilet Weight 97.069 kg 10/02/17 16:40 10/02/17 16:40 Assessment and Plan Assessment: ASSESSMENT 1. Right sided chest pain, an acute coronary event has been ruled out with negative cardiac enzymes and no EKG evidence of ischemia. 2. Hypertension PLAN An acute coronary event has been ruled out. Obtain 2D echocardiogram and doppler study to assess cardiac structure and function. Proceed with repeat CT, if this is normal we will pursue a stress test tomorrow morning. NPO after midnight. Thank you kindly for this consultation. Nurse Practitioner note has been reviewed, I agree with a documented findings and plan of care. Patient was seen and examined.
[2017-10-03] MEDS: VALSARTAN 160 MG TAB PO SCH (21:55)
[2017-10-03] MEDS: HYDROCHLOROTHIAZIDE 25 MG TAB PO SCH (21:55)
[2017-10-03] MEDS: LORazepam 0.5 MG TAB PO SCH (21:56)
--- NOTE | 2017-10-03 22:40 | CT ---
EXAMINATION TYPE: CT angio thoracic/abd aorta w/wo contrast, w 3-D reconstructions DATE OF EXAM: 10/03/2017 COMPARISON: NONE HISTORY: Chest pain. CT DLP: 1510.6 mGycm. Automated Exposure Control for Dose Reduction was Utilized. CONTRAST: CT scan of the thorax, abdomen and pelvis is performed without and with IV Contrast, patien t injected with 100 mL of Isovue 370. 3-D reconstruction FINDINGS: AIRWAYS AND LUNGS AND PLEURAL SPACES: The lungs are grossly clear, there is no concerning parenchymal mass or nodule identified. There is no pleural effusion or pneumothorax seen. The tracheobronchia l tree is patent. MEDIASTINUM: Precontrast CT is negative for intramural hematoma. The ascending thoracic aorta is top normal in caliber. The thoracic aorta is mildly tortuous. Thoracic aorta, pulmonary arterial tree, an d remainder of the great vasculature otherwise unremarkable with widely patent lumens. However, promi nent left and right coronary calcifications are noted. There is no cardiomegaly, and the pericardial space is negative. There are no greater than 1 cm hilar or mediastinal lymph nodes. Intrathoracic sto mach is present, such that half of the stomach is within the chest. SKELETAL STRUCTURES: No focal findings. LIVER/GB: No significant abnormality is appreciated. PANCREAS: No significant abnormality is seen. SPLEEN: No significant abnormality is seen. ADRENALS: No significant abnormality is seen. KIDNEYS: No significant abnormality is seen. BOWEL: No significant abnormality is seen. LYMPH NODES: No greater than 1cm abdominal or pelvic lymph nodes. OSSEOUS STRUCTURES: No significant abnormality is seen. VASCULATURE: The abdominal aorta has normal appearance, as do the mesenteric and renal arteries. The aortoiliac inflow is widely patent. Imaging extended just distal to the common iliac bifurcations. IMPRESSION: 1. NO ACUTE PROCESS, CHEST AND ABDOMEN CTA WITHOUT AND WITH CONTRAST. 2. CORONARY CALCIFICATIONS. 3. INTRATHORACIC STOMACH.
--- NOTE | 2017-10-04 00:17 | P.HPIM ---
History of Present Illness H&P Date: 10/03/17 Chief Complaint: Chest pain Patient is a 57 old male with a known history of hypertension and depression came to ER with complaints of mid retrosternal chest pain, sharp in nature and radiated to the right side of the chest Per his co-workers he was ashen in color and extremely disoriented and diaphoretic. The symptoms lasted for approximately 20 minutes and subsided on its own. He denies associated shortness of breath, palpitations, nausea or vomiting. He states he lost his son last year secondary to a thoracic aortic aneurysm. Initial CTA chest revealed no evidence of PE however thoracic aorta was not clearly visualized. Repeat CT is ordered for this evening at 1800. He's had no further symptoms of chest discomfort or dizziness since admission. EKG revels sinus mechanism with no acute ST or T-wave abnormalities. Telemetry tracings have been unremarkable. Chest xray is negative for an acute cardiopulmonary process. d-dimer less than 0.17 Troponin 3 negative Review of Systems Constitutional: Patient denies any fever or chills . No generalized weakness or weight loss. Abdomen: Patient denied nausea vomiting and diarrhea and abdominal pain. Cardiovascular: Patient denies any chest pain or short of breath no palpitations. Respiratory: patient denied any cough is from production. No shortness of breath Neurologic: Patient denied any numbness or tingling headache. Musculoskeletal: Patient denies any complaints of joint swelling or deformity. Skin: Negative Psychiatric: Negative Endocrine: No heat or cold intolerance. No recent weight gain. Genitourinary: No dysuria or hematuria. All other 14 point ROS negative except the above Past Medical History Past Medical History: Hypertension, Pneumonia Additional Past Medical History / Comment(s): hypoglycemia History of Any Multi-Drug Resistant Organisms: None Reported Past Surgical History: Orthopedic Surgery Additional Past Surgical History / Comment(s): Right achilles tendon repair Past Anesthesia/Blood Transfusion Reactions: No Reported Reaction Smoking Status: Never smoker - Past Family History Mother Additional Family Medical History / Comment(s): passed at 26 in MVA Father Additional Family Medical History / Comment(s): passed at 28 of MVA Sister(s) Family Medical History: No Reported History Brother(s) Family Medical History: No Reported History Son(s) Additional Family Medical History / Comment(s): at 28 from AAA rupture Daughter(s) Family Medical History: No Reported History Medications and Allergies Home Medications Medication Instructions Recorded Confirmed Type LORazepam [Ativan] 0.5 mg PO HS 10/02/17 10/02/17 History Valsartan/Hydrochlorothiazide 1 tab PO HS 10/02/17 10/02/17 History [Valsartan-Hctz 320-25 mg Tab] guanFACINE HCL [Tenex] 2 mg PO BID 10/02/17 10/02/17 History Allergies Allergy/AdvReac Type Severity Reaction Status Date / Time sulfamethoxazole Allergy Nausea & Verified 10/02/17 22:04 [From Bactrim] Vomiting Tetracyclines Allergy Nausea & Verified 10/02/17 22:04 Vomiting trimethoprim [From Bactrim] Allergy Nausea & Verified 10/02/17 22:04 Vomiting Physical Exam Vitals: Vital Signs Temp Pulse Pulse Pulse Pulse Pulse Resp 10/03/17 07:58 98.1 F 62 16 10/03/17 04:00 97.8 F 63 16 10/03/17 03:23 16 10/02/17 22:21 98.4 F 65 16 10/02/17 22:17 18 10/02/17 21:42 99.9 F H 73 18 10/02/17 17:45 71 20 10/02/17 16:47 73 77 70 16 10/02/17 16:10 98.9 F 73 20 BP BP BP BP BP Pulse Ox 10/03/17 07:58 137/79 99 10/03/17 04:00 119/69 95 10/03/17 03:23 10/02/17 22:21 143/72 96 10/02/17 22:17 10/02/17 21:42 107/66 96 10/02/17 17:45 141/65 98 10/02/17 16:47 159/77 145/92 138/74 10/02/17 16:10 135/80 98 Intake and Output 10/02/17 10/03/17 10/03/17 22:59 06:59 14:59 Other: Voiding Method Toilet Toilet Toilet Weight 97.069 kg PHYSICAL EXAMINATION: Patient is lying in the bed comfortably, no acute distress, awake alert and oriented.. HEENT: Normocephalic. Neck is supple. Pupils reactive. Nostrils clear. Oral cavity is moist. Ears reveal no drainage. Neck reveals no JVD, carotid bruits, or thyromegaly. CHEST EXAMINATION: Trachea is central. Symmetrical expansion. Lung thomas clear to auscultation and percussion. CARDIAC: Normal S1, S2 with no gallops. No murmurs ABDOMEN: Soft. Bowel sounds normal. No organomegaly. No abdominal bruits. Extremities: reveal no edema. No clubbing or cyanosis Neurologically awake, alert, oriented x3 with well-coordinated movements. No focal deficits noted Skin: No rash or skin lesions. Psychiatric: Coperative. Nonsuicidal Musculoskeletal: No joint swelling or deformity. Normal range of motion. Results CBC & Chem 7: 10/02/17 16:40 10/03/17 04:37 Labs: Abnormal Lab Results - Last 24 Hours (Table) 10/02/17 10/02/17 10/02/17 Range/Units 16:40 16:40 16:40 APTT 18.6 L (22.0-30.0) sec BUN 25 H (9-20) mg/dL Glucose (74-99) mg/dL Total Creatine Kinase 255 H (55-170) U/L CK-MB (CK-2) 3.0 H* (0.0-2.4) ng/mL 10/02/17 10/03/17 10/03/17 Range/Units 22:51 04:37 04:37 APTT (22.0-30.0) sec BUN 21 H (9-20) mg/dL Glucose 104 H (74-99) mg/dL Total Creatine Kinase 242 H 209 H (55-170) U/L CK-MB (CK-2) (0.0-2.4) ng/mL Thrombosis Risk Factor Assmnt - DVT/VTE Prophylaxis DVT/VTE Prophylaxis: Pharmacologic Prophylaxis ordered - Choose All That Apply Any of the Below Risk Factors Present?: Yes Each Factor Represents 1 point: Age 41-60 years, Obesity (BMI >25) Other Risk Factors: No Other congenital or acquired thrombophilia - If yes, enter type in comment: No Thrombosis Risk Factor Assessment Total Risk Factor Score: 2 Thrombosis Risk Factor Assessment Level: Low Risk Assessment and Plan Assessment: Right-sided chest pain and feeling of passout. ACS has been ruled out. D- dimer is negative unlikely PE at this time. CTA is negative for any pulmonary embolism. CT chest ordered which showed no evidence of aneurysm or dissection. Serial troponins are negative. Cardiology has seen the patient and recommended stress test if CT chest is negative. Hypertension Obesity Plan: Patient be continued on a monitoring. Serial EKG and troponins are negative. D -dimer negative. CT chest is also negative as well. Stress test tomorrow as per cardiology recommendations. Nothing by mouth after midnight. Further recommendations based on the clinical course. Time with Patient: Greater than 30
[2017-10-04] MEDS ORDERED: HEPARIN SODIUM,PORCINE 5,000 UNIT/ML 1 ML VIAL SQ SCH (08:00)
[2017-10-04 08:20] VITALS: RESP 18
[2017-10-04 12:07] VITALS: BP 102/64; PULSE 75; TEMP 97.6
--- NOTE | 2017-10-04 12:34 | ECHOS ---
STRESS ECHOCARDIOGRAM INDICATIONS: Chest pain. BASELINE HEART RATE: 58 BASELINE BLOOD PRESSURE: 115/80 MAXIMUM HEART RATE: 190 MAXIMUM BLOOD PRESSURE: 189/101 85% MPHR: 129 100% MPHR: 164 MAXIMUM STAGE REACHED: II TOTAL EXERCISE TIME: 8:49. METS: 10 CLINICAL INFORMATION: STRESS DATA: Pretesting physical examination showed a heart rate of 58, pressure is 115/80 mmHg. Baseline EKG showed sinus mechanism. The patient exercised on the treadmill according to Víctor protocol for a total of 8 minutes and achieved 10 of METS. Max heart rate was 190, which is about 85% of maximum predicted heart rate. Maximum blood pressure was 189/101 mmHg. Clinically, the patient did not have any symptoms of chest pain or discomfort and the EKG did not show any significant ST or T-wave abnormalities consistent with ischemia. ECHOCARDIOGRAM IMAGES: On echocardiogram images from parasternal long axis view, parasternal short axis view. apical 4 chamber and apical 2 chamber view were obtained as the baseline images, at the peak of the heart rate as well as on recovery and the echocardiogram images showed good augmentation in the left ventricular systolic function even though the images were technically difficult. CONCLUSION: 1. Mild EKG changes in response to exercise. 2. Normal echocardiogram in response to exercise. MMODL / IJN: [id number] /
--- NOTE | 2017-10-04 13:58 | P.PN ---
Subjective Progress Note Date: 10/04/17 Mr. Chaves is a pleasant 57-year-old male past medical history significant for hypertension and depression. He denies history of coronary artery disease, diabetes mellitus or dyslipidemia. 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 We have been asked to see him in consultation for chest pain. He states he was at work yesterday when he became acutely dizzy. 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 Once he sat down he got an intensely sharp pain in the right anterior chest wall that radiated down the right arm and through to his back. Per his co-workers he was ashen in color and extremely disoriented and diaphoretic. The symptoms lasted for approximately 20 minutes and subsided on its own. He denies associated shortness of breath, palpitations, nausea or vomiting. He states he lost his son last year secondary to a thoracic aortic aneurysm. Initial CTA chest revealed no evidence of PE however thoracic aorta was not clearly visualized. Repeat CT is ordered for this evening at 1800. He's had no further symptoms of chest discomfort or dizziness since admission. EKG revels sinus mechanism with no acute ST or T-wave abnormalities. Telemetry tracings have been unremarkable. Chest xray is negative for an acute cardiopulmonary process. Laboratory data reviewed, hemoglobin 15.1, platelets 187, d-dimer less than 0.17 , sodium 139, potassium 4.0, magnesium 2.0, creatinine 0.2, cardiac enzymes negative 3. Current cardiac medications include valsartan/HCTZ 320/25 mg daily. He also takes Ativan and Tenex. 10/04/2017 Mr. Chaves is seen and examined this morning resting comfortably in bed. He denies any further symptoms of chest pain, shortness of breath or dizziness. Telemetry tracings have been unremarkable. CT angios of the chest yesterday revealed no evidence of thoracic aortic aneurysm. Blood pressure 102/64 heart rate 75 afebrile maintaining oxygen saturation on room air. Echocardiogram and Doppler study performed yesterday reveals preserved left ventricular systolic function with ejection fraction 60-65%, mildly dilated left atrium, mild aortic valve sclerosis with no stenosis, mild aortic regurgitation and mild TR. Stress echocardiogram performed this morning reveals no evidence for stress- induced cardiac ischemia normal EKG response to exercise. Objective - Vital Signs Vital signs: Vital Signs Temp 97.6 F 10/04/17 11:50 Pulse 75 10/04/17 11:50 Resp 18 10/04/17 11:50 BP 102/64 10/04/17 11:50 Pulse Ox 96 10/04/17 11:50 Intake & Output 10/03/17 10/04/17 10/04/17 18:59 06:59 18:59 Intake Total 240 420 Balance 240 420 Intake: Oral 240 420 Other: Voiding Method Toilet Toilet - Exam GENERAL: Well-appearing, well-nourished and in no acute distress. NECK: Supple without JVD or thyromegaly. LUNGS: Breath sounds clear to auscultation bilaterally. Respiration equal and unlabored. No wheezes, rales or rhonchi. HEART: Regular rate and rhythm without murmurs, rubs or gallops. S1 and S2 heard. EXTREMITIES: Normal range of motion, no edema. No clubbing or cyanosis. Peripheral pulses intact and strong. - Labs CBC & Chem 7: 10/02/17 16:40 10/03/17 04:37 Assessment and Plan Assessment: ASSESSMENT 1. Right sided chest pain, an acute coronary event has been ruled out with negative cardiac enzymes and no EKG evidence of ischemia. 2. Hypertension PLAN Stress echocardiogram was performed today and reveals no evidence of stress- induced cardiac ischemia. Stable from a cardiac perspective. Follow-up with Dr. Guerrero in 2-3 weeks. Nurse Practitioner note has been reviewed, I agree with a documented findings and plan of care. Patient was seen and examined.
== END 2017-10-04 17:25 | disposition home or self-care (01) ==
LOC: EC 16:03 → 3OBS 18:46
PROVIDERS: ADMIT Hospitalist; ATTEND Hospitalist
DX: R07.2 Precordial pain (principal); R07.89 Other chest pain; R61 Generalized hyperhidrosis; R41.0 Disorientation, unspecified; R42 Dizziness and giddiness; R11.0 Nausea; R55 Syncope and collapse; I10 Essential (primary) hypertension; F32.9 Major depressive disorder, single episode, unspecified; E66.9 Obesity, unspecified; Z68.34 Body mass index [BMI] 34.0-34.9, adult; Z87.01 Personal history of pneumonia (recurrent); Z82.49 Family history of ischemic heart disease and other diseases of the circulatory system; Z79.899 Other long term (current) drug therapy; Z88.2 Allergy status to sulfonamides; Z88.1 Allergy status to other antibiotic agents
CPT/HCPCS: 99285 ×2; 96372; 36415; 94760; 93005; 93306; 93351; 85379; 83880; 80053; 80048; 82150; 82550 ×2; 82553 ×2; 83690; 83735; 84484 ×2; 85025; 85610; 85730; 71046; 75635; 71275 ×2; G0378 ×3; J1644; Q9950; Q9967 ×2

== ENCOUNTER → 2019-03-23 | Outpatient (CLI) | payer BC | END | disposition home or self-care (01) | LOC: LABWHC1 09:15 | PROVIDERS: ATTEND Nurse Practitioner Adult Health | DX: R19.7 Diarrhea, unspecified (principal) | CPT/HCPCS: 87045; 87046; 87328; 87329; 87338 ==

== ENCOUNTER → 2019-04-01 | Outpatient (CLI) | payer BC ==
--- NOTE | 2019-04-01 19:13 | CT ---
EXAMINATION TYPE: CT abdomen pelvis wo IV con, but with oral contrast DATE OF EXAM: 04/01/2019 COMPARISON: CT 10/03/2017 HISTORY: LLQ pain and diarrhea CT DLP: 957 mGycm Automated exposure control for dose reduction was used. TECHNIQUE: Helical acquisition of images was performed from the lung bases through the pelvis. FINDINGS: LUNG BASES: No acute process. Proximal third of the stomach is intrathoracic. LIVER/GB: No significant abnormality is appreciated. PANCREAS: No significant abnormality is seen. SPLEEN: No significant abnormality is seen. ADRENALS: No significant abnormality is seen. KIDNEYS: No significant abnormality is seen. FREE AIR: No free air is visualized. No peritoneal fluid. RETROPERITONEAL ADENOPATHY: None visualized REPRODUCTIVE ORGANS: No significant abnormality is seen URINARY BLADDER: No significant abnormality is seen. PELVIC ADENOPATHY: None visualized. OSSEOUS STRUCTURES: No significant abnormality is seen. BOWEL: No significant abnormality is seen. Sigmoid and descending colon diverticulosis noted, with s ubtle pericolonic edematous reticulation consistent with mild acute diverticulitis at the junction of the descending and sigmoid colon. If not recently obtained, eventual follow-up colonoscopy can dixon cterize the mucosa. IMPRESSION: MILD DIVERTICULITIS AT THE JUNCTION OF THE DESCENDING AND SIGMOID COLON, DISCUSSED.
== END | disposition home or self-care (01) ==
LOC: RADCTMAIN 16:50
PROVIDERS: ATTEND Nurse Practitioner Adult Health
DX: K57.32 Diverticulitis of large intestine without perforation or abscess without bleeding (principal)
CPT/HCPCS: 74176

== ENCOUNTER 2020-11-12 15:23 | Observation (INO) | payer BC ==
[2020-11-12] MEDS ORDERED: SODIUM CHLORIDE 0.9% 500 ML 500 ML IV ONE ×2 (17:27→18:52)
[2020-11-12] MEDS ORDERED: MECLIZINE 12.5 MG TAB PO STA (17:28)
--- NOTE | 2020-11-12 17:32 | ED ---
General Adult HPI - General Chief complaint: Dizziness Stated complaint: Dizziness,Weakness Time Seen by Provider: 11/12/20 17:18 Source: patient, RN notes reviewed, old records reviewed Mode of arrival: wheelchair Limitations: no limitations - History of Present Illness Initial comments: 60-year-old male presenting with symptoms of vertigo which began suddenly approximately one hour prior to arrival. Patient states he had slept throughout the day, currently working midnights woke to do some gardening a and began feeling dizzy. He had no associated nausea. No chest pain. No palpitations. No vomiting. No previous history of TIA or CVA. No previous history of CAD. History of hypertension and hyper lipidemia. - Related Data Home Medications Medication Instructions Recorded Confirmed guanFACINE HCL [Tenex] 2 mg PO BID 10/02/17 11/12/20 Fenofibrate 54 mg PO DAILY 11/12/20 11/12/20 Olmesartan/Hydrochlorothiazide 1 tab PO DAILY 11/12/20 11/12/20 [Olmesartan-Hctz 40-12.5 mg Tab] [place]-3 Fatty Acids/Fish Oil [Fish 1 cap PO DAILY 11/12/20 11/12/20 Oil 1,000 mg Softgel] Allergies Allergy/AdvReac Type Severity Reaction Status Date / Time sulfamethoxazole Allergy Nausea & Verified 11/12/20 17:58 [From Bactrim] Vomiting Tetracyclines Allergy Nausea & Verified 11/12/20 17:58 Vomiting trimethoprim [From Bactrim] Allergy Nausea & Verified 11/12/20 17:58 Vomiting Review of Systems ROS Statement: Those systems with pertinent positive or pertinent negative responses have been documented in the HPI. ROS Other: All systems not noted in ROS Statement are negative. Past Medical History Past Medical History: Hypertension, Pneumonia Additional Past Medical History / Comment(s): hypoglycemia History of Any Multi-Drug Resistant Organisms: None Reported Past Surgical History: Orthopedic Surgery Additional Past Surgical History / Comment(s): Right achilles tendon repair Past Anesthesia/Blood Transfusion Reactions: No Reported Reaction Past Psychological History: Depression Past Alcohol Use History: Occasional Past Drug Use History: None Reported - Past Family History Mother Additional Family Medical History / Comment(s): passed at 26 in MVA Father Additional Family Medical History / Comment(s): passed at 28 of MVA Sister(s) Family Medical History: No Reported History Brother(s) Family Medical History: No Reported History Son(s) Additional Family Medical History / Comment(s): at 28 from AAA rupture Daughter(s) Family Medical History: No Reported History General Exam Limitations: no limitations General appearance: alert, in no apparent distress Head exam: Present: atraumatic, normocephalic Eye exam: Present: normal appearance, PERRL. Absent: nystagmus ENT exam: Present: mucous membranes dry. Absent: TM's normal bilaterally (Bilateral trace effusion) Neck exam: Present: normal inspection. Absent: tenderness, meningismus Respiratory exam: Present: normal lung sounds bilaterally. Absent: respiratory distress, wheezes Cardiovascular Exam: Present: regular rate, normal rhythm GI/Abdominal exam: Present: soft. Absent: distended, tenderness, guarding Extremities exam: Present: normal inspection, normal capillary refill. Absent: pedal edema, calf tenderness Neurological exam: Present: alert, oriented X3, CN II-XII intact, other (No limb ataxia, normal finger to nose bilaterally, normal [id number] bilaterally.). Absent: motor sensory deficit Psychiatric exam: Present: normal affect, normal mood Skin exam: Present: warm, dry, intact. Absent: cyanosis, diaphoretic Course Vital Signs 11/12/20 11/12/20 11/12/20 15:24 16:45 17:00 Temperature 98.0 F 97.8 F Pulse Rate 76 61 Respiratory 16 18 Rate Blood Pressure 146/85 137/86 O2 Sat by Pulse 98 100 100 Oximetry 11/12/20 11/12/20 18:00 19:28 Temperature Pulse Rate 74 Respiratory 18 16 Rate Blood Pressure 127/80 O2 Sat by Pulse 100 98 Oximetry EKG Findings - EKG Comments: EKG Findings:: EKG: Normal sinus rhythm, rate of 61, LA interval 138, QRS duration 84, QTC 450, no ST segment elevation. Medical Decision Making - Medical Decision Making 60-year-old male who had presented with sudden onset lightheadedness, vertigo symptoms. Patient states the room is spinning, worse with lying flat or standing. No chest pain or dyspnea. No focal weakness. No ataxia on exam. Stable vitals. EKG is sinus rhythm. Did perform workup with both CT and CT angiography of the brain which is negative for acute findings. Patient has normal CBC, CMP, negative troponin. He is given an aspirin although I have a low suspicion for posterior circulation stroke. His symptoms are more consistent with vertigo. He remains symptomatic while emergency department. Vital signs are stable. Neurologic exam remains unchanged. Patient will be admitted for symptom control, neurology placed on consult. Case discussed with Dr. josé who will admit - Lab Data Result diagrams: 11/12/20 17:21 11/12/20 17:21 Lab Results 11/12/20 11/12/20 11/12/20 Range/Units 17:21 17:21 17:21 WBC 9.9 (3.8-10.6) k/uL RBC 5.18 (4.30-5.90) m/uL Hgb 15.9 (13.0-17.5) gm/dL Hct 46.0 (39.0-53.0) % MCV 88.7 (80.0-100.0) fL MCH 30.7 (25.0-35.0) pg MCHC 34.6 (31.0-37.0) g/dL RDW 13.0 (11.5-15.5) % Plt Count 191 (150-450) k/uL MPV 9.5 Neutrophils % 83 % Lymphocytes % 10 % Monocytes % 4 % Eosinophils % 1 % Basophils % 0 % Neutrophils # 8.2 H (1.3-7.7) k/uL Lymphocytes # 1.0 (1.0-4.8) k/uL Monocytes # 0.4 (0-1.0) k/uL Eosinophils # 0.1 (0-0.7) k/uL Basophils # 0.0 (0-0.2) k/uL PT (9.0-12.0) sec INR (<1.2) APTT (22.0-30.0) sec Sodium 140 (137-145) mmol/L Potassium 4.4 (3.5-5.1) mmol/L Chloride 106 (98-107) mmol/L Carbon Dioxide 23 (22-30) mmol/L Anion Gap 11 mmol/L BUN 20 (9-20) mg/dL Creatinine 1.17 (0.66-1.25) mg/dL Est GFR (CKD-EPI)AfAm 78 (>60 ml/min/1.73 sqM) Est GFR (CKD-EPI)NonAf 68 (>60 ml/min/1.73 sqM) Glucose 110 H (74-99) mg/dL Calcium 10.1 (8.4-10.2) mg/dL Total Bilirubin 0.7 (0.2-1.3) mg/dL AST 38 (17-59) U/L ALT 33 (4-49) U/L Alkaline Phosphatase 71 (38-126) U/L Troponin I <0.012 (0.000-0.034) ng/mL Total Protein 7.6 (6.3-8.2) g/dL Albumin 4.9 (3.5-5.0) g/dL 11/12/20 Range/Units 17:21 WBC (3.8-10.6) k/uL RBC (4.30-5.90) m/uL Hgb (13.0-17.5) gm/dL Hct (39.0-53.0) % MCV (80.0-100.0) fL MCH (25.0-35.0) pg MCHC (31.0-37.0) g/dL RDW (11.5-15.5) % Plt Count (150-450) k/uL MPV Neutrophils % % Lymphocytes % % Monocytes % % Eosinophils % % Basophils % % Neutrophils # (1.3-7.7) k/uL Lymphocytes # (1.0-4.8) k/uL Monocytes # (0-1.0) k/uL Eosinophils # (0-0.7) k/uL Basophils # (0-0.2) k/uL PT 10.6 (9.0-12.0) sec INR 1.0 (<1.2) APTT 18.5 L (22.0-30.0) sec Sodium (137-145) mmol/L Potassium (3.5-5.1) mmol/L Chloride (98-107) mmol/L Carbon Dioxide (22-30) mmol/L Anion Gap mmol/L BUN (9-20) mg/dL Creatinine (0.66-1.25) mg/dL Est GFR (CKD-EPI)AfAm (>60 ml/min/1.73 sqM) Est GFR (CKD-EPI)NonAf (>60 ml/min/1.73 sqM) Glucose (74-99) mg/dL Calcium (8.4-10.2) mg/dL Total Bilirubin (0.2-1.3) mg/dL AST (17-59) U/L ALT (4-49) U/L Alkaline Phosphatase (38-126) U/L Troponin I (0.000-0.034) ng/mL Total Protein (6.3-8.2) g/dL Albumin (3.5-5.0) g/dL Disposition Clinical Impression: Vertigo, Dehydration Disposition: ADMITTED IP TO THIS [facility] Condition: Stable Is patient prescribed a controlled substance at d/c from ED?: No Decision to Admit Reason: Admit from EC Decision Date: 11/12/20 Decision Time: 19:22
[2020-11-12 17:40] LABS: Basophils % (A) 0 %; Eosinophils # (A) 0.1 k/uL (0-0.7); Eosinophils % (A) 1 %; HGB 15.9 gm/dL (13.0-17.5); Lymphocytes % (A) 10 %; MCH 30.7 pg (25.0-35.0); MCHC 34.6 g/dL (31.0-37.0); MCV 88.7 fL (80.0-100.0); Mean Platelet Volume 9.5; Monocytes # (A) 0.4 k/uL (0-1.0); Monocytes % (A) 4 %; Neutrophils # (A) 8.2 k/uL (1.3-7.7); Neutrophils % (A) 83 %; Platelet Count 191 k/uL (150-450); RBC 5.18 m/uL (4.30-5.90); WBC 9.9 k/uL (3.8-10.6)
[2020-11-12 17:55] LABS: Prothrombin Time 10.6 sec (9.0-12.0)
[2020-11-12 17:57] LABS: Albumin 4.9 g/dL (3.5-5.0); Calcium 10.1 mg/dL (8.4-10.2); Potassium 4.4 mmol/L (3.5-5.1); Total Bilirubin 0.7 mg/dL (0.2-1.3); Total Protein 7.6 g/dL (6.3-8.2)
[2020-11-12 17:59] LABS: Partial Thromboplastin Time 18.5 sec (22.0-30.0)
--- NOTE | 2020-11-12 18:22 | XR ---
EXAMINATION TYPE: XR chest 2V DATE OF EXAM: 11/12/2020 COMPARISON: 10/02/2017 HISTORY: Syncope TECHNIQUE: FINDINGS: There is hiatal hernia. Heart and mediastinum appear normal. Lungs are clear. Diaphragm is normal. There are no hilar masses. The bony thorax is intact. IMPRESSION: No active cardiopulmonary disease. Hiatal hernia. No change.
--- NOTE | 2020-11-12 18:36 | CT ---
EXAMINATION TYPE: CT brain wo con DATE OF EXAM: 11/12/2020 COMPARISON: None HISTORY: dizzyness nausia CT DLP: 1779.9 mGycm Automated exposure control for dose reduction was used. Exam was performed without contrast. Ventricles have normal size. There is no mass effect nor midline shift. There is no sign of intracran ial hemorrhage. The calvarium is intact. There is normal aeration of the mastoid sinuses. Skull base is intact. IMPRESSION: Negative unenhanced head CT scan.
--- NOTE | 2020-11-12 18:39 | CT ---
EXAMINATION TYPE: CT angio head neck DATE OF EXAM: 11/12/2020 COMPARISON: None HISTORY: dizzyness nausia CT DLP: 1779.9 mGycm Automated exposure control for dose reduction was used. CONTRAST: Performed with IV Contrast, patient injected with 65 mL of Isovue 370. There are 3-D post processed images. Images obtained from the aortic arch to the vertex of the brain with IV contrast. There is normal branching pattern of the great vessels on the aortic arch. There is bilateral arteria l flow in the subclavian arteries. There is arterial flow in the common internal and external carotid arteries. There is wide patency of the carotid artery bifurcations. There is arterial flow in both v ertebral arteries. There is no evidence of carotid or vertebral artery aneurysm or dissection. There is arterial flow in the anterior middle and posterior cerebral arteries. There is arterial flow in the vertebrobasilar artery system. There is no mass effect. There is no evidence of hemodynamic s tenosis. I see no aneurysm or neovascularity. There is normal enhancement of the venous sinuses. IMPRESSION: Negative CT angiogram of the neck. Negative CT angiogram of the brain.
[2020-11-12] MEDS ORDERED: ONDANSETRON 4 MG/2 ML VIAL IVP STA (18:52)
[2020-11-12] MEDS ORDERED: ASPIRIN 325 MG TAB PO STA (18:52)
[2020-11-12] MEDS ORDERED: LORazepam 2 MG/ML INJ IV STA (18:53)
[2020-11-12] MEDS ORDERED: ACETAMINOPHEN TAB 325 MG TAB PO PRN (19:18)
[2020-11-12] MEDS ORDERED: LORazepam 2 MG/ML INJ IV PRN (19:18)
[2020-11-12] MEDS ORDERED: NALOXONE 0.4 MG/ML 1 ML VIAL IV PRN (19:18)
[2020-11-12] MEDS ORDERED: ONDANSETRON 4 MG/2 ML VIAL IVP PRN (19:18)
[2020-11-12] MEDS ORDERED: MECLIZINE 25 MG TAB PO PRN (19:19)
[2020-11-12] MEDS: SODIUM CHLORIDE 0.9% 1,000 ML IV SCH (21:29)
[2020-11-13 03:07] VITALS: RESP 16
[2020-11-13 07:56] VITALS: BP 133/74; PULSE 54; TEMP 98.8
[2020-11-13] MEDS: SODIUM CHLORIDE 0.9% 1,000 ML IV SCH (11:18)
--- NOTE | 2020-11-13 15:03 | P.HPIM ---
History of Present Illness 60-year-old the present male came in with the complaints of Crohn's spinning around and vertigo which started yesterday. Patient to was complaining of some fullness in the ears. Patient to vertigo worsens with movement of the head. Patient has some unstable gait but doesn't have any ataxia doesn't have any symptoms or signs of central vertigo. Patient had a CT angios the head and neck as well as CT of the head which did not show any significant abnormality neurology evaluated the patient although I do not see any recommendations from them. As per the patient patient was told he will need vestibular rehab. Patient denied any hearing loss or tinnitus. I did perform Cameron's- Hallspike maneuver with significant improvement in his vertigo although not completely resolved. Patient's unstable gait improved significantly and the patient is being discharged on meclizine and if patient's symptoms recur or if there is no improvement patient will need vestibular rehab and follow up with neurology as an outpatient patient will follow with the his primary care physician Dr. Aissatou Chamberlain in about 3-7 days. Review of Systems REVIEW OF SYSTEMS: CONSTITUTIONAL: No fever, no malaise, no fatigue. HEENT: No recent visual problems or hearing problems. Denied any sore throat. CARDIOVASCULAR: No chest pain, orthopnea, PND, no palpitations, no syncope. PULMONARY: No shortness of breath, no cough, no hemoptysis. GASTROINTESTINAL: No diarrhea, no nausea, no vomiting, no abdominal pain. NEUROLOGICAL: No headaches, no weakness, no numbness. HEMATOLOGICAL: Denies any bleeding or petechiae. GENITOURINARY: Denies any burning micturition, frequency, or urgency. MUSCULOSKELETAL/RHEUMATOLOGICAL: Denies any joint pain, swelling, or any muscle pain. ENDOCRINE: Denies any polyuria or polydipsia. The rest of the 14-point review of systems is negative. Past Medical History Past Medical History: Hypertension, Pneumonia Additional Past Medical History / Comment(s): hypoglycemia History of Any Multi-Drug Resistant Organisms: None Reported Past Surgical History: Orthopedic Surgery Additional Past Surgical History / Comment(s): Right achilles tendon repair Past Anesthesia/Blood Transfusion Reactions: No Reported Reaction Past Psychological History: Depression Additional Psychological History / Comment(s): pt states that he is boderline depressed and that his son 1 year ago Smoking Status: Never smoker Past Alcohol Use History: Occasional Past Drug Use History: None Reported - Past Family History Mother Additional Family Medical History / Comment(s): passed at 26 in MVA Father Additional Family Medical History / Comment(s): passed at 28 of MVA Sister(s) Family Medical History: No Reported History Brother(s) Family Medical History: No Reported History Son(s) Additional Family Medical History / Comment(s): at 28 from AAA rupture Daughter(s) Family Medical History: No Reported History Medications and Allergies Home Medications Medication Instructions Recorded Confirmed Type guanFACINE HCL [Tenex] 2 mg PO BID 10/02/17 11/12/20 History Fenofibrate 54 mg PO DAILY 11/12/20 11/12/20 History Olmesartan/Hydrochlorothiazide 1 tab PO DAILY 11/12/20 11/12/20 History [Olmesartan-Hctz 40-12.5 mg Tab] [place]-3 Fatty Acids/Fish Oil [Fish 1 cap PO DAILY 11/12/20 11/12/20 History Oil 1,000 mg Softgel] Meclizine [Antivert] 25 mg PO TID PRN #30 tab 11/13/20 Rx Allergies Allergy/AdvReac Type Severity Reaction Status Date / Time sulfamethoxazole Allergy Nausea & Verified 11/12/20 17:58 [From Bactrim] Vomiting Tetracyclines Allergy Nausea & Verified 11/12/20 17:58 Vomiting trimethoprim [From Bactrim] Allergy Nausea & Verified 11/12/20 17:58 Vomiting Physical Exam Vitals: Vital Signs Temp Pulse Pulse Resp BP BP Pulse Ox 11/13/20 07:00 98.8 F 54 L 16 133/74 97 11/13/20 01:58 97.9 F 65 16 126/77 98 11/12/20 21:08 97.6 F 65 14 138/86 98 11/12/20 19:28 74 16 127/80 98 11/12/20 18:00 18 100 11/12/20 17:00 100 11/12/20 16:45 97.8 F 61 18 137/86 100 11/12/20 15:24 98.0 F 76 16 146/85 98 Intake and Output 11/12/20 11/13/20 11/13/20 22:59 06:59 14:59 Intake Total 120 Output Total 400 500 Balance 120 -400 -500 Intake: Oral 120 Output: Urine 400 500 Other: Voiding Method Urinal Urinal # Voids 0 0 Weight 95.254 kg PHYSICAL EXAMINATION: GENERAL: The patient is alert and oriented x3, not in any acute distress. Well developed, well nourished. HEENT: Pupils are round and equally reacting to light. EOMI. No scleral icterus. No conjunctival pallor. Normocephalic, atraumatic. No pharyngeal erythema. No thyromegaly. CARDIOVASCULAR: S1 and S2 present. No murmurs, rubs, or gallops. PULMONARY: Chest is clear to auscultation, no wheezing or crackles. ABDOMEN: Soft, nontender, nondistended, normoactive bowel sounds. No palpable organomegaly. MUSCULOSKELETAL: No joint swelling or deformity. EXTREMITIES: No cyanosis, clubbing, or pedal edema. NEUROLOGICAL: Gross neurological examination did not reveal any focal deficits. SKIN: No rashes. Results CBC & Chem 7: 11/12/20 17:21 11/12/20 17:21 Labs: Abnormal Lab Results - Last 24 Hours (Table) 11/12/20 11/12/20 11/12/20 Range/Units 17:21 17:21 17:21 Neutrophils # 8.2 H (1.3-7.7) k/uL APTT 18.5 L (22.0-30.0) sec Glucose 110 H (74-99) mg/dL Coronavirus (PCR) (Not Detectd) 11/12/20 Range/Units 19:19 Neutrophils # (1.3-7.7) k/uL APTT (22.0-30.0) sec Glucose (74-99) mg/dL Coronavirus (PCR) Detected A (Not Detectd) Thrombosis Risk Factor Assmnt - Choose All That Apply Each Factor Represents 1 point: Age 41-60 years, Obesity (BMI >25) Thrombosis Risk Factor Assessment Total Risk Factor Score: 2 Thrombosis Risk Factor Assessment Level: Low Risk Assessment and Plan Plan: -Peripheral vertigo most probably secondary to benign push vertigo or labyrin thitis, patient will continue with low-sodium diet patient's symptoms improved with the above-mentioned maneuver. Patient will be discharged on meclizine and above-mentioned instructions. Ruled out for cerebellar causes or stroke or any brainstem causes of his vertigo. -Hypertension -Hyperlipidemia For above-mentioned chronic medical problems patient will resume on home medications. Patient will be discharged today.
--- NOTE | 2020-11-13 15:03 | P.DS ---
Providers Date of admission: 11/12/20 19:18 Attending physician: David Armstrong Consults: 11/12/20 19:19 Consult Physician Routine Consulting Provider: Beatriz Wick Consult Reason/Comments: Vertigo Do you want consulting provider notified?: Yes Primary care physician: Sanya Chamberlain [facility] Course: Please refer to my history of present illness for further details Patient Condition at Discharge: Stable Plan - Discharge Summary Discharge Rx Participant: No New Discharge Prescriptions: New Meclizine [Antivert] 25 mg PO TID PRN #30 tab PRN Reason: Vertigo Continue guanFACINE HCL [Tenex] 2 mg PO BID Olmesartan/Hydrochlorothiazide [Olmesartan-Hctz 40-12.5 mg Tab] 1 tab PO DAILY Fenofibrate 54 mg PO DAILY [place]-3 Fatty Acids/Fish Oil [Fish Oil 1,000 mg Softgel] 1 cap PO DAILY Discharge Medication List guanFACINE HCL [Tenex] 2 mg PO BID 10/02/17 [History] Fenofibrate 54 mg PO DAILY 11/12/20 [History] Olmesartan/Hydrochlorothiazide [Olmesartan-Hctz 40-12.5 mg Tab] 1 tab PO DAILY 11/12/20 [History] [place]-3 Fatty Acids/Fish Oil [Fish Oil 1,000 mg Softgel] 1 cap PO DAILY 11/12/20 [History] Meclizine [Antivert] 25 mg PO TID PRN #30 tab 11/13/20 [Rx] Follow up Appointment(s)/Referral(s): Sanya Chamberlain DO [Primary Care Provider] - 3 Days Patient Instructions/Handouts: Vertigo (DC), Vertigo (GEN) Discharge Disposition: HOME SELF-CARE
--- NOTE | 2020-11-13 18:31 | P.CNNES ---
History of Present Illness Consult date: 11/13/20 History of Present Illness: The patient is a 60-year-old male who is seen in neurologic consultation on November 13, 2020, via teleneurology. The patient reports that he got up from sleeping the other afternoon, as he sleeps during the day because of working nights. He went out into his garden and began to water the plants. He says that he bent over and when he stood back up, he became "dizzy". He then went into his house and laid down. He says that the spinning sensation started when he laid down. He began to experience nausea as well. There is no vomiting. Patient states that his spinning sensation continues to be present. He notices that is worse when he is laying flat or when he is standing up. She reports a feeling of pressure sensation behind his ears. He says that another doctor told him that he had "fluid in his left ear" patient denies recent upper respiratory infection. He does report "sinuses and allergies". The patient denies changes in hearing. He reports constant tinnitus. This has been present for a long time. Patient does report one previous episode of vertigo, occurring in 1987. The patient denies weakness, numbness, changes in speech, diplopia, difficulty swallowing. Past Medical History Past Medical History: Hypertension, Pneumonia Additional Past Medical History / Comment(s): hypoglycemia History of Any Multi-Drug Resistant Organisms: None Reported Past Surgical History: Orthopedic Surgery Additional Past Surgical History / Comment(s): Right achilles tendon repair Past Anesthesia/Blood Transfusion Reactions: No Reported Reaction Past Psychological History: Depression Additional Psychological History / Comment(s): pt states that he is boderline depressed and that his son 1 year ago Smoking Status: Never smoker Past Alcohol Use History: Occasional Past Drug Use History: None Reported - Past Family History Mother Additional Family Medical History / Comment(s): passed at 26 in MVA Father Additional Family Medical History / Comment(s): passed at 28 of MVA Sister(s) Family Medical History: No Reported History Brother(s) Family Medical History: No Reported History Son(s) Additional Family Medical History / Comment(s): at 28 from AAA rupture Daughter(s) Family Medical History: No Reported History Medications and Allergies Home Medications Medication Instructions Recorded Confirmed Type guanFACINE HCL [Tenex] 2 mg PO BID 10/02/17 11/12/20 History Fenofibrate 54 mg PO DAILY 11/12/20 11/12/20 History Olmesartan/Hydrochlorothiazide 1 tab PO DAILY 11/12/20 11/12/20 History [Olmesartan-Hctz 40-12.5 mg Tab] [place]-3 Fatty Acids/Fish Oil [Fish 1 cap PO DAILY 11/12/20 11/12/20 History Oil 1,000 mg Softgel] Meclizine [Antivert] 25 mg PO TID PRN #30 tab 11/13/20 Rx Allergies Allergy/AdvReac Type Severity Reaction Status Date / Time sulfamethoxazole Allergy Nausea & Verified 11/12/20 17:58 [From Bactrim] Vomiting Tetracyclines Allergy Nausea & Verified 11/12/20 17:58 Vomiting trimethoprim [From Bactrim] Allergy Nausea & Verified 11/12/20 17:58 Vomiting Physical Examination - Vital Signs Vital Signs: Vital Signs Temp Pulse Pulse Resp BP BP Pulse Ox 11/13/20 07:00 98.8 F 54 L 16 133/74 97 11/13/20 01:58 97.9 F 65 16 126/77 98 11/12/20 21:08 97.6 F 65 14 138/86 98 11/12/20 19:28 74 16 127/80 98 11/12/20 18:00 18 100 11/12/20 17:00 100 11/12/20 16:45 97.8 F 61 18 137/86 100 11/12/20 15:24 98.0 F 76 16 146/85 98 Intake and Output 11/12/20 11/13/20 11/13/20 22:59 06:59 14:59 Intake Total 120 Output Total 400 Balance 120 -400 Intake: Oral 120 Output: Urine 400 Other: Voiding Method Urinal Urinal # Voids 0 0 Weight 95.254 kg Gen.: The patient is well-nourished, well-developed and in mild distress. He is reclining in the bed. HEENT: Head is atraumatic, normocephalic. Fundus not visualized. There is no scleral icterus. Mucous members are moist. Neurological examination Mental status: The patient is awake, alert and oriented 3. His speech is clear. There is no dysarthria. Cranial nerves: Pupils are equal at 5 mm and reactive. Visual thomas are full to confrontation. Extraocular movements are intact. There is no nystagmus. Facial sensations intact. There is no facial asymmetry. Hearing is grossly intact. Uvula and palate are midline. Shoulder shrug is symmetric. Tongue protrudes midline. Motor: Strength is 5/5 throughout. Coordination: Finger to nose, rapid alternating movements and [id number] testing are intact. Deep tendon reflexes: 2+/4+ in the upper extremities. 1-2+4+ at the knees. Sensation: Grossly intact to light touch. There is no extinction with double simultaneous stimulation. Results - Laboratory Findings CBC and BMP: 11/12/20 17:21 11/12/20 17:21 Abnormal Lab Findings: Abnormal Labs 11/12/20 11/12/20 11/12/20 17:21 17:21 17:21 Neutrophils # 8.2 H APTT 18.5 L Glucose 110 H Coronavirus (PCR) 11/12/20 19:19 Neutrophils # APTT Glucose Coronavirus (PCR) Detected A Assessment and Plan Assessment: 1. The patient is a 60-year-old male with a normal neurological examination. There are no signs of cerebellar ataxia. His symptoms and examin ation are consistent with benign positional vertigo 2. Reported fluid in the left ear Plan: 1. Physical therapy consultation for Eulogio maneuver 2. Discussed performance of Eulogio and Kelvin-Hallpike maneuver, with patient himself 3. Patient may benefit from decongestant and/or Antivert Time with Patient: Greater than 30 (spent 40 minutes with patient via teleneurology)
== END 2020-11-13 11:44 | disposition home or self-care (01) ==
LOC: EC 15:23 → 6NMEDSUR 19:18
PROVIDERS: ADMIT Internal Medicine; ATTEND Internal Medicine
DX: H81.399 Other peripheral vertigo, unspecified ear (principal); E86.0 Dehydration; I10 Essential (primary) hypertension; E78.5 Hyperlipidemia, unspecified; E16.2 Hypoglycemia, unspecified; U07.1 COVID-19; F32.9 Major depressive disorder, single episode, unspecified; K44.9 Diaphragmatic hernia without obstruction or gangrene; J30.9 Allergic rhinitis, unspecified; R26.81 Unsteadiness on feet; E66.9 Obesity, unspecified; Z68.32 Body mass index [BMI] 32.0-32.9, adult; Z79.899 Other long term (current) drug therapy; Z88.1 Allergy status to other antibiotic agents; Z88.2 Allergy status to sulfonamides; Z87.01 Personal history of pneumonia (recurrent); Z98.890 Other specified postprocedural states; Z82.49 Family history of ischemic heart disease and other diseases of the circulatory system
CPT/HCPCS: 96376; 96361; 96374; 96375; 99285; 36415; 93005; 80053; 84484; 85025; 85610; 85730; 87635; 71046; 70496; 70450; 70498; G0378 ×2; U0003; U0005; J2060 ×2; J2405; Q9967

== ENCOUNTER 2021-12-08 09:25 | Emergency (ER) | payer BC ==
[2021-12-08 09:32] VITALS: BP 136/88; RESP 18; TEMP 98.1
--- NOTE | 2021-12-08 10:27 | ED ---
Arrhythmia/Palpitations HPI - General Chief Complaint: Arrhythmia/Palpitations Stated Complaint: Sent by Urgent care/Abnormal EKG Time Seen by Provider: 12/08/21 09:34 Source: patient, RN notes reviewed Mode of arrival: ambulatory Limitations: no limitations - History of Present Illness Initial Comments: This a 7-year-old male presents emergency Department from urgent care for possible abnormal EKG. Patient states that he went to urgent care yesterday as he felt some palpitations and felt short of breath when lifting some bags of salt. He states he has no chest pain no current symptoms. Denies filter wrist currently. Denies any nausea vomiting diarrhea constipation. Patient states she does take medications for hypertension. Patient went to urgent care sent here stating that they saw something abnormal on his chest x-ray and EKG. He has no prior cardiac disease no other associated symptoms. - Related Data Home Medications Medication Instructions Recorded Confirmed guanFACINE HCL [Tenex] 2 mg PO BID 10/02/17 12/08/21 Fenofibrate 54 mg PO DAILY 11/12/20 12/08/21 Olmesartan/Hydrochlorothiazide 1 tab PO HS 11/12/20 12/08/21 [Olmesartan-Hctz 40-12.5 mg Tab] Multivitamins, Thera [Multivitamin 1 tab PO DAILY 12/08/21 12/08/21 (formulary)] Garrison-5 Fish Oil 1 cap PO DAILY 12/08/21 12/08/21 Allergies Allergy/AdvReac Type Severity Reaction Status Date / Time sulfamethoxazole AdvReac Nausea & Verified 12/08/21 11:21 [From Bactrim] Vomiting Tetracyclines AdvReac Nausea & Verified 12/08/21 11:21 Vomiting trimethoprim [From Bactrim] AdvReac Nausea & Verified 12/08/21 11:21 Vomiting Review of Systems ROS Statement: Those systems with pertinent positive or pertinent negative responses have been documented in the HPI. ROS Other: All systems not noted in ROS Statement are negative. Past Medical History Past Medical History: Hypertension, Pneumonia Additional Past Medical History / Comment(s): hypoglycemia History of Any Multi-Drug Resistant Organisms: None Reported Past Surgical History: Orthopedic Surgery Additional Past Surgical History / Comment(s): Right achilles tendon repair Past Anesthesia/Blood Transfusion Reactions: No Reported Reaction Past Psychological History: Depression Smoking Status: Never smoker Past Alcohol Use History: Occasional Past Drug Use History: None Reported - Past Family History Mother Additional Family Medical History / Comment(s): passed at 26 in MVA Father Additional Family Medical History / Comment(s): passed at 28 of MVA Sister(s) Family Medical History: No Reported History Brother(s) Family Medical History: No Reported History Son(s) Additional Family Medical History / Comment(s): at 28 from AAA rupture Daughter(s) Family Medical History: No Reported History General Exam Limitations: no limitations General appearance: alert, in no apparent distress Head exam: Present: atraumatic, normocephalic, normal inspection Eye exam: Present: normal appearance, PERRL, EOMI. Absent: scleral icterus, conjunctival injection, periorbital swelling ENT exam: Present: normal exam, normal oropharynx, mucous membranes moist Neck exam: Present: normal inspection, full ROM. Absent: tenderness, meningismus, lymphadenopathy Respiratory exam: Present: normal lung sounds bilaterally. Absent: respiratory distress, wheezes, rales, rhonchi, stridor Cardiovascular Exam: Present: regular rate, normal rhythm, normal heart sounds. Absent: systolic murmur, diastolic murmur, rubs, gallop, clicks GI/Abdominal exam: Present: soft, normal bowel sounds. Absent: distended, tenderness, guarding, rebound, rigid Neurological exam: Present: alert, oriented X3, CN II-XII intact Skin exam: Present: warm, dry, intact, normal color. Absent: rash Course Vital Signs 12/08/21 12/08/21 09:27 10:04 Temperature 98.1 F Pulse Rate 76 Pulse Rate [ 78 Dirt Shoveler ] Respiratory 18 Rate Blood Pressure 136/88 O2 Sat by Pulse 100 Oximetry Medical Decision Making - Medical Decision Making Workup included CT labs EKG with no specific findings him and mild dehydration. Patient did have some palpitations yesterday but has no current palpitations. Patient is asymptomatic has no chest pain patient has no aneurysm negative d- dimer negative troponin. - Lab Data Result diagrams: 12/08/21 10:07 12/08/21 10:07 Lab Results 12/08/21 12/08/21 12/08/21 Range/Units 10:07 10:07 10:07 WBC 5.0 (3.8-10.6) k/uL RBC 4.73 (4.30-5.90) m/uL Hgb 14.4 (13.0-17.5) gm/dL Hct 42.7 (39.0-53.0) % MCV 90.1 (80.0-100.0) fL MCH 30.4 (25.0-35.0) pg MCHC 33.8 (31.0-37.0) g/dL RDW 13.4 (11.5-15.5) % Plt Count 194 (150-450) k/uL MPV 10.6 Neutrophils % 65 % Lymphocytes % 24 % Monocytes % 6 % Eosinophils % 2 % Basophils % 1 % Neutrophils # 3.2 (1.3-7.7) k/uL Lymphocytes # 1.2 (1.0-4.8) k/uL Monocytes # 0.3 (0-1.0) k/uL Eosinophils # 0.1 (0-0.7) k/uL Basophils # 0.0 (0-0.2) k/uL PT 10.6 (9.0-12.0) sec INR 1.0 (<1.2) APTT 20.6 L (22.0-30.0) sec D-Dimer 0.20 (<0.60) mg/L FEU Sodium 138 (137-145) mmol/L Potassium 4.4 (3.5-5.1) mmol/L Chloride 105 (98-107) mmol/L Carbon Dioxide 21 L (22-30) mmol/L Anion Gap 12 mmol/L BUN 23 H (9-20) mg/dL Creatinine 1.39 H (0.66-1.25) mg/dL Est GFR (CKD-EPI)AfAm 63 (>60 ml/min/1.73 sqM) Est GFR (CKD-EPI)NonAf 55 (>60 ml/min/1.73 sqM) Glucose 109 H (74-99) mg/dL Calcium 9.1 (8.4-10.2) mg/dL Magnesium 2.0 (1.6-2.3) mg/dL Total Bilirubin 0.6 (0.2-1.3) mg/dL AST 34 (17-59) U/L ALT 28 (4-49) U/L Alkaline Phosphatase 56 (38-126) U/L Troponin I (0.000-0.034) ng/mL Total Protein 7.1 (6.3-8.2) g/dL Albumin 4.5 (3.5-5.0) g/dL Lipase 77 (23-300) U/L 12/08/ Range/Units 10:07 WBC (3.8-10.6) k/uL RBC (4.30-5.90) m/uL Hgb (13.0-17.5) gm/dL Hct (39.0-53.0) % MCV (80.0-100.0) fL MCH (25.0-35.0) pg MCHC (31.0-37.0) g/dL RDW (11.5-15.5) % Plt Count (150-450) k/uL MPV Neutrophils % % Lymphocytes % % Monocytes % % Eosinophils % % Basophils % % Neutrophils # (1.3-7.7) k/uL Lymphocytes # (1.0-4.8) k/uL Monocytes # (0-1.0) k/uL Eosinophils # (0-0.7) k/uL Basophils # (0-0.2) k/uL PT (9.0-12.0) sec INR (<1.2) APTT (22.0-30.0) sec D-Dimer (<0.60) mg/L FEU Sodium (137-145) mmol/L Potassium (3.5-5.1) mmol/L Chloride (98-107) mmol/L Carbon Dioxide (22-30) mmol/L Anion Gap mmol/L BUN (9-20) mg/dL Creatinine (0.66-1.25) mg/dL Est GFR (CKD-EPI)AfAm (>60 ml/min/1.73 sqM) Est GFR (CKD-EPI)NonAf (>60 ml/min/1.73 sqM) Glucose (74-99) mg/dL Calcium (8.4-10.2) mg/dL Magnesium (1.6-2.3) mg/dL Total Bilirubin (0.2-1.3) mg/dL AST (17-59) U/L ALT (4-49) U/L Alkaline Phosphatase (38-126) U/L Troponin I <0.012 (0.000-0.034) ng/mL Total Protein (6.3-8.2) g/dL Albumin (3.5-5.0) g/dL Lipase (23-300) U/L Disposition Clinical Impression: Dehydration, Palpitations Disposition: HOME SELF-CARE Condition: Stable Instructions (If sedation given, give patient instructions): Heart Palpitations (ED) Additional Instructions: Please return to the Emergency Department if symptoms worsen or any other concerns. Is patient prescribed a controlled substance at d/c from ED?: No Referrals: Sanya Chamberlain DO [Primary Care Provider] - 1-2 days Time of Disposition: 13:02
[2021-12-08 10:28] LABS: Basophils % (A) 1 %; Eosinophils # (A) 0.1 k/uL (0-0.7); Eosinophils % (A) 2 %; HCT 42.7 % (39.0-53.0); HGB 14.4 gm/dL (13.0-17.5); Lymphocytes # (A) 1.2 k/uL (1.0-4.8); Lymphocytes % (A) 24 %; MCH 30.4 pg (25.0-35.0); MCHC 33.8 g/dL (31.0-37.0); MCV 90.1 fL (80.0-100.0); Mean Platelet Volume 10.6; Monocytes # (A) 0.3 k/uL (0-1.0); Monocytes % (A) 6 %; Neutrophils # (A) 3.2 k/uL (1.3-7.7); Neutrophils % (A) 65 %; Platelet Count 194 k/uL (150-450); RBC 4.73 m/uL (4.30-5.90); RDW 13.4 % (11.5-15.5)
[2021-12-08 10:44] LABS: Partial Thromboplastin Time 20.6 sec (22.0-30.0); Prothrombin Time 10.6 sec (9.0-12.0)
[2021-12-08 10:56] LABS: Albumin 4.5 g/dL (3.5-5.0); Calcium 9.1 mg/dL (8.4-10.2); Potassium 4.4 mmol/L (3.5-5.1); Total Bilirubin 0.6 mg/dL (0.2-1.3); Total Protein 7.1 g/dL (6.3-8.2)
--- NOTE | 2021-12-08 12:47 | CT ---
EXAMINATION TYPE: CT angio thor/abd pel aorta DATE OF EXAM: 12/08/2021 COMPARISON: CT abdomen and pelvis 04/01/2019 HISTORY: Abnormal EKG, pain CT DLP: 1851.7 mGycm Automated exposure control for dose reduction was used. Contrast: 100 mL [id number] Technique: Pre and postcontrast imaging at 5 mm thick sections. Images were obtained from above the l raphael apices to the pubic rami. FINDINGS: There is herniation of the stomach into the lower thoracic region. The gastroesophageal junction is a lawrence the diaphragm. Adrenal glands are normal. Kidneys without contrast appear unremarkable. Liver and spleen appear unre markable. Pancreas is normal. Gallbladder is normal. Loops of bowel without contrast appear normal. A few diverticular changes within the sigmoid colon. The appendix is normal as visualized. Minimal vas cular calcification in the aorta. Attention is paid to the thoracic and abdominal aorta with contrast. No aneurysmal dilatation is evid ent. No dissection is identified. Aorta bifurcates normally into the common iliac vessels. Superior m esenteric artery and celiac axis bilateral renal arteries and inferior mesenteric artery are normal. Common iliac vessels are patent at the bifurcations. Common femoral arteries are patent. IMPRESSION: 1. NO SUSPICIOUS CHANGES WITHIN THE THORACIC OR ABDOMINAL AORTA
[2021-12-08 13:17] VITALS: PULSE 76
== END 2021-12-08 13:17 | disposition home or self-care (01) ==
LOC: EC 09:25
DX: R00.2 Palpitations (principal); E86.0 Dehydration; I10 Essential (primary) hypertension; Z88.2 Allergy status to sulfonamides; Z88.8 Allergy status to other drugs, medicaments and biological substances; Z88.1 Allergy status to other antibiotic agents
CPT/HCPCS: 36415; 85379; 80053; 83690; 83735; 84484; 85025; 85610; 85730; 71275; 74174; 99285; Q9967; 93005

== ENCOUNTER → 2023-08-20 | Outpatient (CLI) | payer BC ==
--- NOTE | 2023-08-20 16:57 | US ---
EXAMINATION TYPE: US kidneys/renal and bladder DATE OF EXAM: 08/20/2023 COMPARISON: NONE CLINICAL INDICATION: Male, 62 years old with history of R94.4 ABNORMAL RESULTS OF KIDNEY FUNCTION ROLANDO DIES; abn function test, no symptoms EXAM MEASUREMENTS: Right Kidney: 12.4 x 5.4 x 6.1 cm Left Kidney: 10.3 x 3.9 x 4.8 cm Right Kidney: No hydronephrosis or masses seen Left Kidney: No hydronephrosis or masses seen Bladder: wnl There is no evidence for hydronephrosis at this point in time. No nephrolithiasis is seen. No macy s are identified. The urinary bladder is anechoic. Bilateral ureteral jets are seen. Cortical medul marya differentiation is maintained. IMPRESSION: No evidence for obstructive uropathy.
== END | disposition home or self-care (01) ==
LOC: RADUSWWP 15:08
PROVIDERS: ATTEND Family Medicine
DX: R94.4 Abnormal results of kidney function studies (principal)
CPT/HCPCS: 76770

== ENCOUNTER → 2023-10-19 | Outpatient (CLI) | payer BC ==
[2023-10-19 15:19] LABS: Basophils # (A) 0.06 X 10*3/uL (0.00-0.10); Eosinophils % (A) 1.6 %; HCT 41.5 % (39.6-50.0); HGB 13.6 g/dL (13.0-17.0); Lymphocytes % (A) 17.8 %; MCH 27.7 pg (27.0-32.0); MCHC 32.8 g/dL (32.0-37.0); MCV 84.5 FL (80.0-97.0); Monocytes # (A) 0.52 X 10*3/uL (0.20-1.00); Monocytes % (A) 8.4 %; NRBC Per 100 WBC 0 X 10*3/uL (0.00-0.01); Platelet Count 209 X 10*3/uL (140-440); RBC 4.91 X 10*6/uL (4.40-5.60); RDW 13.3 % (11.5-14.5); WBC 6.19 X 10*3/uL (4.50-10.00)
[2023-10-19 15:45] LABS: Appearance,Urine Clear (Clear); Bilirubin,Urine Negative (Negative); Blood,Urine Negative (Negative); Color,Urine Yellow (Yellow); Ketones,Urine Negative (Negative); Nitrite,Urine Negative (Negative); PH, Urine 7.5; Specific Gravity,Urine 1.013 (1.001-1.030); Urobilinogen,Urine 0.2 E.U./DL
[2023-10-19 15:52] LABS: % Iron Saturation 14.07 (15.00-50.00); Albumin 4.6 g/dL (3.8-4.9); Blood Urea Nitrogen 18.2 mg/dL (9.0-27.0); Calcium 10.1 mg/dL (8.7-10.3); Carbon Dioxide 20.8 mmol/L (21.6-31.8); Chloride 105 mmol/L (96-109); Glucose 111 mg/dL (70-110); Iron 65 UG/DL (65-175); Magnesium 1.8 mg/dL (1.5-2.4); Phosphorus 2.8 mg/dL (2.4-5.1); Potassium 4.6 mmol/L (3.5-5.5); Sodium 140 mmol/L (135-145); Total Iron Binding Capacity 462 UG/DL (228-460)
[2023-10-19 18:26] LABS: Microalbumin Creatinine Ratio <15 mg/g Cr (0-30); Urine Creatinine 78.7 mg/dL (39.0-259.0)
== END | disposition home or self-care (01) ==
LOC: LABWHC1 08:36
PROVIDERS: ATTEND Internal Medicine Nephrology
DX: N18.31 Chronic kidney disease, stage 3a (principal)
CPT/HCPCS: 36415; 80048; 81003; 82040; 82043; 82306; 82570; 82728; 83540; 83550; 83735; 83970; 84100; 84550; 85025; 86334; 86335

== ENCOUNTER → 2024-01-30 | Outpatient (CLI) | payer BC ==
--- NOTE | 2024-01-30 08:28 | XR ---
EXAMINATION TYPE: XR chest 2V DATE OF EXAM: 01/30/2024 COMPARISON: 11/12/2020 HISTORY: 63-year-old male J18.1, unspecified lobar pneumonia TECHNIQUE: Frontal and lateral views FINDINGS: Partially visualized reverse right shoulder arthroplasty. Heart normal size. There is a rounded retro cardiac density. Similar focal left basilar density at the apex of the heart suggesting epicardial fa t pad, unchanged from prior. No other consolidation or pleural effusion. IMPRESSION: 1. Known moderate to large hiatal hernia. Correlate for any associated symptoms. 2. Stable density at the cardiac apex suggestive of a prominent epicardial fat pad. 3. Otherwise, no acute process seen.
== END | disposition home or self-care (01) ==
LOC: RADXRWHC 07:01
PROVIDERS: ATTEND Family Medicine
DX: J18.1 Lobar pneumonia, unspecified organism
CPT/HCPCS: 71046

== ENCOUNTER 2024-04-01 08:21 | Day surgery (SDC) | payer BC ==
[~2024-04-01 08:21] MED LIST: LIDOCAINE 1% (10MG/ML) FOR IV START INTRADERMA PRN
[2024-04-01 08:43] VITALS: TEMP 96.8
[2024-04-01] MEDS: IV FLUID CONTINUATION 1,000 ML IV ONE (09:01)
[2024-04-01] MEDS: LACTATED RINGERS 1,000 ML IV SCH (09:02)
[2024-04-01] MEDS ORDERED: PROPOFOL 10 MG/ML 20 ML VIAL IV ONE (09:12)
[2024-04-01] MEDS ORDERED: GLYCOPYRROLATE 0.2 MG/ML 2 ML VIAL ONE (09:12)
[2024-04-01] MEDS ORDERED: LIDOCAINE 1% INJ 10MG/ML (20 ML MDV) ONE (09:12)
--- NOTE | 2024-04-01 09:28 | P.PCN ---
Date of Procedure: 04/01/24 Procedure(s) Performed: BRIEF HISTORY: Patient is a 63-year-old pleasant white male admitted scheduled for an elective colonoscopy as a part of screening for colon cancer. PROCEDURE PERFORMED: Colonoscopy. PREOPERATIVE DIAGNOSIS: Screening for colon cancer. IV sedation per Anesthesia. PROCEDURE: After informed consent was obtained, the patient, was brought into the endoscopy unit. IV sedation was administered by Anesthesia under continuous monitoring. Digital rectal examination was normal. Initially the Olympus CF-160 flexible video colonoscope was then inserted in the rectum, gradually advanced into the cecum without any difficulty. Careful examination was performed as the scope was gradually being withdrawn. Ileocecal valve and the appendiceal orifice were visualized and appeared normal. Prep was excellent. Mucosa of the cecum, ascending colon, transverse colon, descending colon, sigmoid colon, and rectum appeared normal. Scattered sigmoid diverticulosis. Retroflexion was performed in the rectum and no lesions were seen. The patient tolerated the procedure well. IMPRESSION: Normal-appearing colon from rectum to cecum no evidence of colorectal neoplasia. Scattered sigmoid diverticulosis. RECOMMENDATIONS: Findings of this examination were discussed with the patient as well as his family. He was advised to have repeat screening colonoscopy in 10 years..
[2024-04-01 09:53] VITALS: BP 133/79; PULSE 56; RESP 16
== END 2024-04-01 10:09 | disposition home or self-care (01) ==
LOC: ORWHC2ENDO 08:21
PROVIDERS: ATTEND Internal Medicine Gastroenterology
DX: Z12.11 Encounter for screening for malignant neoplasm of colon (principal); K57.30 Diverticulosis of large intestine without perforation or abscess without bleeding; F32.A Depression, unspecified; E16.2 Hypoglycemia, unspecified; Z79.899 Other long term (current) drug therapy; Z88.1 Allergy status to other antibiotic agents; Z88.2 Allergy status to sulfonamides
CPT/HCPCS: 45378; J2003; J2704; J1596